=== PATIENT | female | born 1940 | race Caucasian/White ===

== ENCOUNTER 2020-03-06 10:56 | Outpatient (REF) | payer MEDICARE, SELFPAY ==
[2020-03-06 12:05] LABS: MANUAL DIFF FLAG NO
[2020-03-06 12:19] LABS: Basophils Absolute Auto 0.1 X10*3/uL (0.0-0.2); Eosinophils Absolute Auto 0.1 X10*3/uL (0.0-0.4); Eosinophils Percent Auto 1.9 % (0-4); Hematocrit 36.9 % (37-47); Hemoglobin 11.1 g/dl (12.0-16.0); Imm Gran Abs Auto 0.02 X10*3/uL (0.00-0.03); Imm Gran Pct Auto 0.4 % (0.0-0.4); Lymphocytes Absolute Auto 1.1 X10*3/uL (1.2-4.9); Lymphocytes Percent Auto 21.9 % (20-40); Mean Corpuscular HGB Conc 30.1 g/dl (31.0-35.0); Mean Corpuscular Hemoglobin 27.5 pg (27.0-33.0); Mean Corpuscular Volume 91.6 fL (80-98); Mean Platelet Volume 11.4 fL (9.4-12.3); Monocytes Absolute Auto 0.4 X10*3/uL (0.1-1.2); Neutrophils Absolute Auto 3.4 X10*3/uL (2.0-8.3); Neutrophils Percent Auto 66.8 % (45-73); Platelet Count 228 X10*3/uL (160-400); Red Blood Count 4.03 X10*6/uL (4.20-5.50); White Blood Count 5.2 X10*3/uL (4.8-10.8)
[2020-03-06 12:23] LABS: Glucose Urine UA NEG (NEG); Leukocyte Esterase Urine 1+ (NEG); Nitrite Urine NEG (NEG); PH 5.5 (5.0-8.0); Specific Gravity - Urine 1.025 (1.005-1.025); Urine Blood NEG (NEG); Urine Ketones NEG (NEG); Urine Protein NEG (NEG-TRACE)
[2020-03-06 12:31] LABS: Alanine Aminotransferase 31 U/L (0-31); Albumin Level 4.1 g/dL (3.5-5.0); Alkaline Phosphatase 124 U/L (39-117); Anion Gap 14 (12-20); Aspartate Amino Transferase 31 U/L (5-31); Bilirubin Total 0.6 mg/dL (0.0-1.0); Blood Urea Nitrogen 20 mg/dL (9-16); Calcium 9.8 mg/dL (8.4-10.2); Carbon Dioxide 23 mmol/L (22-29); Chloride 111 mmol/L (96-108); Cholesterol 173 mg/dL; Estimated Glomerular Filt Rate 54; Glucose Fasting 112 mg/dL (60-99); HDL Cholesterol 74 mg/dL; Iron 49 mcg/dL (30-160); LDL Cholesterol Calculated 85 mg/dl; Percent Iron Saturation 12 % (15-50); Potassium 4.5 mmol/l (3.3-5.1); Sodium 143 mmol/L (135-145); Total Iron Binding Capacity 406 mcg/dL (228-428); Total Protein 6.8 g/dL (6.5-8.0); Triglycerides 71 mg/dL; Unsaturated Iron Binding 357 ug/dL
[2020-03-06 12:34] LABS: Appearance Urine HAZY; Color Urine YELLOW
[2020-03-06 12:47] LABS: Bacteria Urine TRACE /LPF; RBC Urine 0 /HPF (0); Squamous Epithelial Cell Urine 3+ /LPF
[2020-03-06 13:00] LABS: Microalbum/Creatinine Ratio Ur 11.9 ug/mg cr
[2020-03-06 13:03] LABS: Estimated Average Glucose 128 mg/dL; Hemoglobin A1c % 6.1 %
== END 2020-03-06 10:57 | disposition home or self-care (01) ==
LOC: HO.LAB 10:56
PROVIDERS: PCP Internal Medicine; Visit Provider Internal Medicine
DX: E11.65 Type 2 diabetes mellitus with hyperglycemia (principal); I10 Essential (primary) hypertension; E78.00 Pure hypercholesterolemia, unspecified
CPT/HCPCS: 36415; 80053; 80061; 81001; 81003; 82043; 83036; 83540; 85025

== ENCOUNTER 2020-06-16 14:05 | Outpatient (REF) | payer MEDICARE, SELFPAY ==
[2020-06-16 16:57] LABS: Alanine Aminotransferase 10 U/L (0-31); Albumin Level 4.3 g/dL (3.5-5.0); Alkaline Phosphatase 123 U/L (39-117); Anion Gap 15 (12-20); Aspartate Amino Transferase 15 U/L (5-31); Bilirubin Total 1.1 mg/dL (0.0-1.0); Blood Urea Nitrogen 14 mg/dL (9-16); Calcium 10.6 mg/dL (8.4-10.2); Carbon Dioxide 26 mmol/L (22-29); Chloride 107 mmol/L (96-108); Estimated Glomerular Filt Rate 52; Glucose Random 98 mg/dL (60-115); Potassium 4.2 mmol/L (3.3-5.1); Sodium 144 mmol/L (135-145); Total Protein 7.1 g/dL (6.5-8.0)
[2020-06-17 03:35] LABS: Estimated Average Glucose 120 mg/dL; Hemoglobin A1c % 5.8 %
== END 2020-06-16 14:06 | disposition home or self-care (01) ==
LOC: HO.HMGCLDS 14:05
PROVIDERS: PCP Internal Medicine; Visit Provider Internal Medicine
DX: E11.22 Type 2 diabetes mellitus with diabetic chronic kidney disease (principal); I12.9 Hypertensive chronic kidney disease with stage 1 through stage 4 chronic kidney disease, or unspecified chronic kidney disease; N18.9 Chronic kidney disease, unspecified; D63.1 Anemia in chronic kidney disease
CPT/HCPCS: 36415; 80053; 83036

== ENCOUNTER 2020-10-24 11:53 | Outpatient (REF) | payer MEDICARE, SELFPAY ==
[2020-10-24 13:15] LABS: MANUAL DIFF FLAG NO
[2020-10-24 13:30] LABS: Basophils Absolute Auto 0.1 X10*3/uL (0.0-0.2); Eosinophils Absolute Auto 0.1 X10*3/uL (0.0-0.4); Eosinophils Percent Auto 1.7 % (0-4); Hematocrit 37.7 % (37-47); Hemoglobin 11.5 g/dl (12.0-16.0); Imm Gran Abs Auto 0.01 X10*3/uL (0.00-0.03); Imm Gran Pct Auto 0.2 % (0.0-0.4); Lymphocytes Absolute Auto 1.2 X10*3/uL (1.2-4.9); Lymphocytes Percent Auto 19.8 % (20-40); Mean Corpuscular HGB Conc 30.5 g/dl (31.0-35.0); Mean Corpuscular Hemoglobin 27.3 pg (27.0-33.0); Mean Corpuscular Volume 89.3 fL (80-98); Mean Platelet Volume 11.4 fL (9.4-12.3); Monocytes Absolute Auto 0.4 X10*3/uL (0.1-1.2); Monocytes Percent Auto 6.7 % (2-11); Neutrophils Absolute Auto 4.1 X10*3/uL (2.0-8.3); Neutrophils Percent Auto 70.6 % (45-73); Platelet Count 227 X10*3/uL (160-400); Red Blood Count 4.22 X10*6/uL (4.20-5.50); Red Cell Distribution Width 14.5 % (11.0-16.0); White Blood Count 5.9 X10*3/uL (4.8-10.8)
[2020-10-24 13:35] LABS: Estimated Average Glucose 123 mg/dL; Hemoglobin A1c % 5.9 %
[2020-10-24 13:36] LABS: Alanine Aminotransferase 11 U/L (0-31); Albumin Level 4.2 g/dL (3.5-5.0); Alkaline Phosphatase 112 U/L (39-117); Anion Gap 12 (12-20); Aspartate Amino Transferase 17 U/L (5-31); Bilirubin Total 0.7 mg/dL (0.0-1.0); Blood Urea Nitrogen 23 mg/dL (9-16); Calcium 10.5 mg/dL (8.4-10.2); Carbon Dioxide 27 mmol/L (22-29); Chloride 109 mmol/L (96-108); Estimated Glomerular Filt Rate 39; Glucose Random 130 mg/dL (60-115); Potassium 4.3 mmol/L (3.3-5.1); Sodium 144 mmol/L (135-145); Total Protein 6.9 g/dL (6.5-8.0)
[2020-10-27 13:12] LABS: Calcium (PTHI) 10.6 mg/dL (8.6-10.4); PTHI 70 pg/mL (14-64)
== END 2020-10-24 11:54 | disposition home or self-care (01) ==
LOC: HO.LAB 11:53
PROVIDERS: PCP Internal Medicine; Visit Provider Internal Medicine
DX: I12.9 Hypertensive chronic kidney disease with stage 1 through stage 4 chronic kidney disease, or unspecified chronic kidney disease (principal); N18.9 Chronic kidney disease, unspecified; E11.22 Type 2 diabetes mellitus with diabetic chronic kidney disease; E78.00 Pure hypercholesterolemia, unspecified
CPT/HCPCS: 36415; 80053; 83036; 83970; 85025

== ENCOUNTER 2021-03-27 10:53 | Outpatient (REF) | payer MEDICARE, SELFPAY ==
[2021-03-27 13:48] LABS: MANUAL DIFF FLAG NO
[2021-03-27 13:53] LABS: Basophils Percent Auto 0.8 % (0-2); Eosinophils Absolute Auto 0.1 X10*3/uL (0.0-0.4); Eosinophils Percent Auto 2.6 % (0-4); Hematocrit 37.8 % (37.0-47.0); Hemoglobin 11.4 g/dl (12.0-16.0); Imm Gran Abs Auto 0.01 X10*3/uL (0.00-0.03); Imm Gran Pct Auto 0.2 % (0.0-0.4); Lymphocytes Absolute Auto 1.2 X10*3/uL (1.2-4.9); Lymphocytes Percent Auto 23.7 % (20-40); Mean Corpuscular HGB Conc 30.2 g/dl (31.0-35.0); Mean Corpuscular Hemoglobin 27.3 pg (27.0-33.0); Mean Corpuscular Volume 90.4 fL (80.0-98.0); Mean Platelet Volume 11.1 fL (9.4-12.3); Monocytes Absolute Auto 0.4 X10*3/uL (0.1-1.2); Monocytes Percent Auto 6.9 % (2-11); Neutrophils Absolute Auto 3.3 x10*3/uL (2.0-8.3); Neutrophils Percent Auto 65.8 % (45-73); Platelet Count 224 X10*3/uL (160-400); Red Blood Count 4.18 X10*6/uL (4.20-5.50); Red Cell Distribution Width 14.1 % (11.0-16.0); White Blood Count 5.1 X10*3/uL (4.8-10.8)
[2021-03-27 14:04] LABS: Alanine Aminotransferase 13 U/L (0-31); Alkaline Phosphatase 113 U/L (39-117); Anion Gap 11 (12-20); Aspartate Amino Transferase 17 U/L (5-31); Bilirubin Total 0.7 mg/dL (0.0-1.0); Blood Urea Nitrogen 15 mg/dL (9-16); Calcium 10.3 mg/dL (8.4-10.2); Carbon Dioxide 26 mmol/L (22-29); Chloride 109 mmol/L (96-108); Cholesterol 171 mg/dL; Estimated Glomerular Filt Rate 41; Glucose Fasting 110 mg/dL (60-99); Potassium 4.4 mmol/L (3.3-5.1); Sodium 142 mmol/L (135-145); Total Protein 6.6 g/dL (6.5-8.0)
[2021-03-27 14:06] LABS: Estimated Average Glucose 131 mg/dL; Hemoglobin A1c % 6.2 %
[2021-03-27 14:25] LABS: Creatinine Urine 141.77 mg/dL; Microalbum/Creatinine Ratio Ur 108.6 ug/mg cr
== END 2021-03-27 10:54 | disposition home or self-care (01) ==
LOC: HO.10HDL 10:53
PROVIDERS: Visit Provider Internal Medicine
DX: I12.9 Hypertensive chronic kidney disease with stage 1 through stage 4 chronic kidney disease, or unspecified chronic kidney disease (principal); N18.9 Chronic kidney disease, unspecified; E11.22 Type 2 diabetes mellitus with diabetic chronic kidney disease; M19.90 Unspecified osteoarthritis, unspecified site
CPT/HCPCS: 36415; 80053; 82043; 82465; 83036; 85025

== ENCOUNTER 2021-09-23 10:17 | Outpatient (REF) | payer MEDICARE, SELFPAY ==
[2021-09-23 11:45] LABS: Estimated Average Glucose 131 mg/dL; Hemoglobin A1c % 6.2 %
[2021-09-23 12:24] LABS: Alanine Aminotransferase 12 U/L (0-31); Albumin Level 3.9 g/dL (3.5-5.0); Alkaline Phosphatase 109 U/L (39-117); Anion Gap 12 (12-20); Aspartate Amino Transferase 20 U/L (5-31); Bilirubin Total 0.8 mg/dL (0.0-1.0); Blood Urea Nitrogen 12 mg/dL (9-16); Carbon Dioxide 26 mmol/L (22-29); Chloride 110 mmol/L (96-108); Estimated Glomerular Filt Rate 41; Glucose Random 121 mg/dL (60-115); Potassium 4.5 mmol/L (3.3-5.1); Sodium 143 mmol/L (135-145); Total Protein 6.5 g/dL (6.5-8.0)
== END 2021-09-23 10:18 | disposition home or self-care (01) ==
LOC: HO.LAB 10:17
PROVIDERS: PCP Internal Medicine; Visit Provider Internal Medicine
DX: I12.9 Hypertensive chronic kidney disease with stage 1 through stage 4 chronic kidney disease, or unspecified chronic kidney disease (principal); N18.9 Chronic kidney disease, unspecified; E11.22 Type 2 diabetes mellitus with diabetic chronic kidney disease
CPT/HCPCS: 36415; 80053; 83036

== ENCOUNTER 2022-02-24 12:17 | Outpatient (REF) | payer MEDICARE, SELFPAY ==
[2022-02-24 12:38] LABS: MANUAL DIFF FLAG NO
[2022-02-24 14:00] LABS: Eosinophils Absolute Auto 0.1 X10*3/uL (0.0-0.4); Eosinophils Percent Auto 2.3 % (0-4); Hematocrit 37.2 % (37.0-47.0); Hemoglobin 11.3 g/dl (12.0-16.0); Imm Gran Abs Auto 0.01 X10*3/uL (0.00-0.03); Imm Gran Pct Auto 0.3 % (0.0-0.4); Lymphocytes Absolute Auto 1.1 X10*3/uL (1.2-4.9); Lymphocytes Percent Auto 27.7 % (20-40); Mean Corpuscular HGB Conc 30.4 g/dl (31.0-35.0); Mean Corpuscular Hemoglobin 27.2 pg (27.0-33.0); Mean Corpuscular Volume 89.4 fL (80.0-98.0); Mean Platelet Volume 11.2 fL (9.4-12.3); Monocytes Absolute Auto 0.3 X10*3/uL (0.1-1.2); Monocytes Percent Auto 7.4 % (2-11); Neutrophils Absolute Auto 2.4 x10*3/uL (2.0-8.3); Neutrophils Percent Auto 61.3 % (45-73); Platelet Count 227 X10*3/uL (160-400); Red Blood Count 4.16 X10*6/uL (4.20-5.50); Red Cell Distribution Width 13.7 % (11.0-16.0); White Blood Count 3.9 X10*3/uL (4.8-10.8)
[2022-02-24 14:09] LABS: Estimated Average Glucose 123 mg/dL; Hemoglobin A1c % 5.9 %
[2022-02-24 14:33] LABS: Creatinine Urine 145.65 mg/dL; Microalbum/Creatinine Ratio Ur 71.4 ug/mg cr
[2022-02-24 14:42] LABS: Alanine Aminotransferase 12 U/L (0-31); Albumin Level 4.2 g/dL (3.5-5.0); Alkaline Phosphatase 121 U/L (39-117); Anion Gap 12 (12-20); Aspartate Amino Transferase 19 U/L (5-31); Bilirubin Total 0.7 mg/dL (0.0-1.0); Blood Urea Nitrogen 15 mg/dL (9-16); Calcium 10.2 mg/dL (8.4-10.2); Carbon Dioxide 26 mmol/L (22-29); Chloride 107 mmol/L (96-108); Estimated Glomerular Filt Rate 49; Glucose Random 106 mg/dL (60-115); Potassium 4.3 mmol/L (3.3-5.1); Sodium 141 mmol/L (135-145); Total Protein 6.7 g/dL (6.5-8.0)
== END 2022-02-24 12:18 | disposition home or self-care (01) ==
LOC: HO.LAB 12:17
PROVIDERS: PCP Internal Medicine; Visit Provider Internal Medicine
DX: I12.9 Hypertensive chronic kidney disease with stage 1 through stage 4 chronic kidney disease, or unspecified chronic kidney disease (principal); E11.22 Type 2 diabetes mellitus with diabetic chronic kidney disease; N18.9 Chronic kidney disease, unspecified
CPT/HCPCS: 36415; 80053; 82043; 83036; 85025

== ENCOUNTER 2022-06-04 07:49 | Outpatient (REF) | payer MEDICARE, SELFPAY ==
[2022-06-04 08:15] LABS: MANUAL DIFF FLAG NO
[2022-06-04 08:42] LABS: Basophils Absolute Auto 0.1 X10*3/uL (0.0-0.2); Eosinophils Absolute Auto 0.1 X10*3/uL (0.0-0.4); Eosinophils Percent Auto 2.5 % (0-4); Hematocrit 35.6 % (37.0-47.0); Hemoglobin 11.2 g/dl (12.0-16.0); Imm Gran Abs Auto 0.01 X10*3/uL (0.00-0.03); Imm Gran Pct Auto 0.2 % (0.0-0.4); Lymphocytes Absolute Auto 1.4 X10*3/uL (1.2-4.9); Lymphocytes Percent Auto 26.3 % (20-40); Mean Corpuscular HGB Conc 31.5 g/dl (31.0-35.0); Mean Corpuscular Hemoglobin 27.7 pg (27.0-33.0); Mean Corpuscular Volume 88.1 fL (80.0-98.0); Mean Platelet Volume 10.5 fL (9.4-12.3); Monocytes Absolute Auto 0.5 X10*3/uL (0.1-1.2); Monocytes Percent Auto 9.6 % (2-11); Neutrophils Absolute Auto 3.2 x10*3/uL (2.0-8.3); Neutrophils Percent Auto 60.4 % (45-73); Platelet Count 195 X10*3/uL (160-400); Red Blood Count 4.04 X10*6/uL (4.20-5.50); Red Cell Distribution Width 14.1 % (11.0-16.0); White Blood Count 5.2 X10*3/uL (4.8-10.8)
[2022-06-04 08:54] LABS: Estimated Average Glucose 137 mg/dL; Hemoglobin A1c % 6.4 %
[2022-06-04 09:27] LABS: Alanine Aminotransferase 38 U/L (0-31); Albumin Level 3.9 g/dL (3.5-5.0); Alkaline Phosphatase 154 U/L (39-117); Anion Gap 12 (12-20); Aspartate Amino Transferase 26 U/L (5-31); Bilirubin Total 1.1 mg/dL (0.0-1.0); Blood Urea Nitrogen 21 mg/dL (9-16); Calcium 10.1 mg/dL (8.4-10.2); Carbon Dioxide 26 mmol/L (22-29); Chloride 109 mmol/L (96-108); Cholesterol 173 mg/dL; Estimated Glomerular Filt Rate 49; Glucose Fasting 121 mg/dL (60-99); HDL Cholesterol 74 mg/dL; LDL Cholesterol Calculated 87 mg/dl; Potassium 4.1 mmol/L (3.3-5.1); Sodium 143 mmol/L (135-145); Total Protein 6.3 g/dL (6.5-8.0); Triglycerides 60 mg/dL
[2022-06-04 10:05] LABS: Microalbum/Creatinine Ratio Ur 11.7 ug/mg cr
== END 2022-06-04 07:50 | disposition home or self-care (01) ==
LOC: HO.LAB 07:49
PROVIDERS: PCP Internal Medicine; Visit Provider Internal Medicine
DX: E78.00 Pure hypercholesterolemia, unspecified (principal); E11.22 Type 2 diabetes mellitus with diabetic chronic kidney disease; I12.9 Hypertensive chronic kidney disease with stage 1 through stage 4 chronic kidney disease, or unspecified chronic kidney disease; N18.9 Chronic kidney disease, unspecified
CPT/HCPCS: 36415; 80053; 80061; 82043; 83036; 85025

== ENCOUNTER 2023-05-24 11:06 | Outpatient (REF) | payer MEDICARE, SELFPAY ==
--- NOTE | ~2023-05-24 | XR_ITS ---
EXAMINATION: XR KNEE, LEFT CLINICAL INFORMATION: Fall, pain. COMPARISON: None available. TECHNIQUE: Two views of the left knee. FINDINGS: There is genu varus. There is severe joint space narrowing and marginal osteophytes with subchondral cystic change in the medial compartment. Lateral compartment: Chondrocalcinosis noted, marginal osteophytes with slight widening likely secondary to the narrowed medial compartment. Overall at least mild arthrosis. Patellofemoral compartment: Evaluation is limited as only lateral view obtained. Marginal osteophytes indicative of at least mild osteoarthritis. There is no effusion. There is no fracture. XR/XR knee LT 2V IMPRESSION: 1. Osteoarthritis of the left knee with degenerative changes most prominent and severe in the medial compartment. Chondrocalcinosis 2. No acute abnormality.
--- NOTE | ~2023-05-24 | XR_ITS ---
EXAMINATION: XR LUMBOSACRAL SPINE CLINICAL INFORMATION: Fall pain. COMPARISON: X-rays of lumbar sacral spine November 2013 TECHNIQUE: Three views of the lumbosacral spine. FINDINGS: There is persistent grade 1 anterolisthesis at L4-5 which appears secondary to degenerative changes with prominent bilateral facet arthrosis posteriorly unchanged compared to prior. . There is also mild grade 1 retrolisthesis at the L1-2 and L2-3 levels mild degenerative disc changes at both levels. L3-4 unremarkable. L5-S1: Grade 1 anterolisthesis secondary to degenerative changes with prominent bilateral facet arthrosis. There is no fracture or bone lesion. Partially visualized pelvis unremarkable. XR/XR lumbar spine 2-3V IMPRESSION: Multilevel spondylosis of the lumbosacral spine with degenerative listhesis. No change compared with November 2013 x-ray. No acute abnormality.
[2023-05-24 11:25] LABS: MANUAL DIFF FLAG NO
[2023-05-24 12:33] LABS: Estimated Average Glucose 114 mg/dL; Hemoglobin A1c % 5.6 % (<6.0)
[2023-05-24 12:35] LABS: Basophils Percent Auto 0.6 % (0-2); Eosinophils Absolute Auto 0.1 X10*3/uL (0.0-0.4); Eosinophils Percent Auto 1.2 % (0-4); Hematocrit 37.5 % (37.0-47.0); Hemoglobin 11.5 g/dl (12.0-16.0); Imm Gran Abs Auto 0.02 X10*3/uL (0.00-0.03); Imm Gran Pct Auto 0.4 % (0.0-0.4); Lymphocytes Percent Auto 18.9 % (20-40); Mean Corpuscular HGB Conc 30.7 g/dl (31.0-35.0); Mean Corpuscular Volume 91.2 fL (80.0-98.0); Mean Platelet Volume 10.7 fL (9.4-12.3); Monocytes Absolute Auto 0.3 X10*3/uL (0.1-1.2); Monocytes Percent Auto 6.7 % (2-11); Neutrophils Absolute Auto 3.7 x10*3/uL (2.0-8.3); Neutrophils Percent Auto 72.2 % (45-73); Platelet Count 236 X10*3/uL (160-400); Red Blood Count 4.11 X10*6/uL (4.20-5.50); Red Cell Distribution Width 15.3 % (11.0-16.0); White Blood Count 5.1 X10*3/uL (4.8-10.8)
[2023-05-24 13:12] LABS: Alanine Aminotransferase 13 U/L (0-31); Albumin Level 4.1 g/dL (3.5-5.0); Alkaline Phosphatase 151 U/L (39-117); Anion Gap 13 (12-20); Aspartate Amino Transferase 22 U/L (5-31); Bilirubin Total 0.7 mg/dL (0.0-1.0); Blood Urea Nitrogen 15 mg/dL (9-16); Calcium 10.6 mg/dL (8.4-10.2); Carbon Dioxide 28 mmol/L (22-29); Chloride 109 mmol/L (96-108); Estimated Glomerular Filt Rate > 60; Glucose Random 109 mg/dL (60-115); Potassium 3.5 mmol/L (3.3-5.1); Sodium 146 mmol/L (135-145); Total Protein 7.1 g/dL (6.5-8.0)
== END 2023-05-24 11:07 | disposition home or self-care (01) ==
LOC: HO.XRAY 11:06
PROVIDERS: PCP Internal Medicine; Visit Provider Internal Medicine
DX: M54.2 Cervicalgia (principal); M25.562 Pain in left knee; I10 Essential (primary) hypertension; D64.9 Anemia, unspecified; Z91.81 History of falling
CPT/HCPCS: 36415; 72100; 73560; 80053; 83036; 85025

== ENCOUNTER 2024-07-04 10:59 | Outpatient (AMB) | payer MEDICARE, SELFPAY ==
--- NOTE | 2024-07-04 11:05 | MHC.PC.OV ---
Vital Signs 07/04/24 11:31 Height 4 ft 11 in Weight 190 lb BMI 38.4 BP 128/80 Blood Pressure Location Rt brachial Position Sitting Pulse 71 Pulse Source Pulse Oximeter Temp 97.5 F Temp Source Axillary Pulse Oximetry (%) 98 Oxygen Delivery Method Room Air Intake Visit Reasons: Routine Customer Support Advisor Required: No Accompanied by: Self / Same As Patient Allergies penicillin G [Penicillin G] Allergy (Unknown, Verified 07/04/24 11:36) RASH Tobacco use date assessed: 07/04/24 Fall risk assessment: 1 Fall in past year (pt fall on the bathroom floor) Last assessed Fall Risk: 07/04/24 Dental Screening Dental Screen Date: 07/04/24 Did you have a dental visit in the last 12 months?: No Did you have a dental problem in the last 6 months where you did not have access to dental care?: No [facility] Medical History (Updated 07/04/24 @ 13:25 by Hong Pierre MD) Osteoarthritis Family History (Updated 07/04/24 @ 11:40 by Domi Newman MA) Mother No problems noted. Father No problems noted. Social History Housing: House Patient Tobacco Use Status: Never used Tobacco e-Cigarette/Vaping Use: Never Used service: No Current occupational status: retired Cognitive needs: No Hearing needs: Yes (both hear aids. she doesn't have a rx for them and she borrowed them) Vision needs: Yes (rx glasses) Questionnaire PHQ-9 Over the last 2 weeks, how often have you been bothered by any of the following problems? 1. Little interest or pleasure in doing things: not at all 2. Feeling down, depressed, or hopeless: not at all 3. Trouble falling or staying asleep, or sleeping too much: not at all 4. Feeling tired or having little energy: not at all 5. Poor appetite or overeating: not at all 6. Feeling bad about yourself - or that you are a failure or have let yourself or your family down: not at all 7. Trouble concentrating on things, such as reading the newspaper or watching television: not at all 8. Moving or speaking so slowly that other people could have noticed. Or the opposite - being so fidgety or restless that you have been moving around a lot more than usual: not at all 9. Thoughts that you would be better off or of hurting yourself in some way: not at all Total score: 0 Source: Developed by Drs. Santiago Burkett, Ted Morse and colleagues, with an educational anisha from [employer]. Thrive Questionnaire Date Thrive assessed: 07/04/24 I am a: Patient Within the past 12 months, did the food you bought not last and you didn't have the money to get more?: Never true Within the past 12 months, did you worry whether your food would run out before you got money to buy more?: Never true Do you have trouble paying for medicines?: No Do you have trouble getting transportation to medical appointments?: No Do you have trouble paying your heating and electricity bill?: No Do you have trouble taking care of your child, family member or friend?: No Do you have trouble with day-to-day activities such as bathing, preparing meals, shopping, managing finances, etc.?: No Are you currently unemployed and looking for a job?: No Are you interested in more education?: No THRIVE Score: 0 AUDIT C Alcohol Use Questionnaire (AUDIT-C) 1. How often do you have a drink containing alcohol?: Never 3. How often do you have six or more drinks on one occasion?: Never Total Score: 0 DAMIAN-7 AMB Questionnaire DAMIAN-7 Date DAMIAN - 7 assessed: 07/04/24 Feeling nervous, anxious, or on edge: 0 = Not at all Not being able to stop or control worryin = Not at all Worrying too much about different things: 0 = Not at all Trouble relaxin = Not at all Being so restless that it is hard to sit still: 0 = Not at all Becoming easily annoyed or irritable: 0 = Not at all Feeling afraid as if something awful might happen: 0 = Not at all Total DAMIAN-7 score (0-4 normal; 5-9 mild; 10-14 moderate; 15-21 severe): 0 Source: Developed by Drs. Santiago Burkett, Ted Morse and colleagues, with an educational anisha from [employer]. Physical exam (Primary Care) Vital Signs: Last Vital Signs Temp 97.5 F 07/04/24 11:31 Pulse 71 07/04/24 11:31 BP 128/80 07/04/24 11:31 Pulse Ox 98 07/04/24 11:31 Oxygen Delivery Method Room Air 07/04/24 11:31 BMI result Body Mass Index 38.4 Tobacco/Smoking Status: Tobacco use Status Tobacco use date assessed 07/04/24 07/04/24 11:07 Patient Tobacco Use Status Never used Tobacco 07/04/24 11:07 e-Cigarette/Vaping Use Never Used 07/04/24 11:07 PHQ-9: PHQ-9 Score PHQ-9: Total score 0 07/04/24 11:44 Thrive Assessment: Date of Thrive Assessment Date Thrive assessed 07/04/24 07/04/24 11:07 Coding Level of Care Code New Pt Level 4 (88211) Complex EM visit Add On G2211 Diagnoses Osteoarthritis M19.90 Assessment & Plan Assessment & Plan (1) Osteoarthritis: Code(s): M19.90 - Unspecified osteoarthritis, unspecified site Category: Medical Plan: History of Present Illness The patient is an 84-year-old female presenting with difficulty swallowing and bilateral knee pain. She described an onset of symptoms involving a sensation of obstruction in the upper palate accompanied by a sore throat, noted as white in appearance. This progressively resulted in difficulty swallowing, though with some slight improvement noted over time. She has a significant fall history, resulting in an arm fracture now managed with physical therapy, but knee pain persists despite multiple interventions. Previous cortisone injections and use of hyaluronic acid have been reported but not notably effective. Her knee condition leads to restricted mobility, and she is reliant on a wheelchair. Leg swelling is present, suspected to be circulation-related due to immobility. The patient's inability to ambulate effectively increases her risk of further circulation issues. She has resumed furosemide treatment due to leg edema, with guidance to adjust the dosage as clinically appropriate. Social History - Functional status: Limited mobility, reliant on wheelchair, minimal use of a walker - Family: Daughter involved in care, brought patient to visit - Exercise: No formal exercise, but engages in activities related to physical therapy - Family Status: Discussed with daughter involved in appointments - Prior PT completed; no current plan for continuation Review of Systems - HEENT: Reports difficulty swallowing - Respiratory: Reports shortness of breath - Musculoskeletal: Reports knee pain, joint swelling, and limited mobility - Skin: Reports swelling in the leg area - General: Denies current active infections or fever Physical Exam General: Cooperative and healthy appearing Nutritional Appearance: Well nourished Orientation/consciousness: Patient oriented x3 Limitations: No limitations Head: Normal to inspection General: Appearance normal, both eyes and all related structures Neck: Normal visual inspection Chest: Normal palpation of entire chest wall Respiratory: Patient experiences shortness of breath. ormal respiratory effort Neurology: Patient oriented x3. Results Plan 1. Difficulty Swallowing - Monitor symptoms and reassess as necessary. 2. Knee Osteoarthritis - Decision made to forego knee replacement; consider cortisone injections if applicable. 3. Fractured Upper Arm - Continue at-home exercises post-PT. 4. Swelling In Legs - Adjust furosemide dosage to 40 mg for edema. 5. Mobility Issues Related To Previous Fall - Encourage walker use; reassess mobility status. Discussion Notes We discussed the patient?s ongoing difficulty swallowing and confirmed that the white appearance in the throat is improving and not requiring intervention. Regarding her bilateral knee pain, the patient remains hesitant about knee replacement, so we reviewed alternative options, including potential repeat cortisone injections if warranted. I recommend increased mobility to manage her leg swelling and prevent complications associated with sedentary lifestyle. We also discussed the adjustment of furosemide to 40 mg for better management of the swelling. I suggested resuming physical therapy; however, the patient declined further sessions. Planned for reassessment in two weeks to consider any necessary alterations to her management plan. Patient Instructions - Monitor your throat symptoms and report if they worsen. - Increase furosemide dose to 40 mg if swelling in the legs does not improve. - Continue exercises and activities recommended by PT. - Consider cortisone injection for knee pain if more than six months have passed since the last one. - Keep using a walker for support. - Follow up in two weeks as scheduled.
[2024-07-04 11:31] VITALS: BP 128/80; PULSE 71; TEMP 36.4; O2SAT 98; BMI 38.4
--- OUTSIDE RECORDS SUMMARY | 2024-07-04 12:25 | XMS_ITS | Patient Health Record ---
Author Organization [facility] Address [address] [place] [address] Care Team Providers Care Staff Radiographer Name Role Phone Marco Santiago MD Primary Care Provider Courtneya Khoa Dove Unavailable [phone] Volodymyr Ennis Unavailable [phone] Allergies Allergen (clinical drug ingredient) Drug/Non Drug Allergy documented on EMR Reaction Allergy Type Onset Date Status ivory soap (uncoded) Unknown Allergy Active amoxicillin Amoxicillin hives, vomiting Drug Allergy Active sulfamethoxazole / trimethoprim Bactrim Unknown Drug Allergy Active Adhesive rash Allergy Active choline magnesium trisalicylate Choline Magnesium Trisalicylate Hearing loss Drug Allergy Active Penicillin hives, vomiting Drug Allergy Active Reason For Referral No Information Medications Medication SIG (Take, Route, Frequency, Duration) Notes Start Date End Date Status Tylenol Arthritis Pain Not-Taking Compression Stockings Not-Taking Crestor Active Vitamin B 12 Not-Narciso ing Aspirin 81 MG 1 tablet Orally Once a day for 30 day(s) Active Vitamin C Not-Taking Motrin Not-Taking Lasix 20 MG 1 tablet Orally Once a day for 30 day(s) Not-Taking Hair Skin Nails Not- Taking Vitamin B Complex No t-Taking Magnesium 250 MG 1 tablet with a meal Orally Once a day for 30 day(s) Active Protonix Not-Taking metFORMIN HCl 500 MG as directed Active Iron Not-Taking Lisinopril 10 MG 1 tablet Orally Once a day for 30 day(s) Active Zinc Not-Taking Vitamin B12 3000 MCG/ML Sublingual Not-Taking Inhaler Companions N ot-Taking Diabetic Insoles Not -Taking Vitamin D Not-Taking Immunizations Vaccine Route Administration Date Status Comme nts COVID-19 Anthony & Anthony/Tracey Unknown 11/16/2021 R efused Influenza Unknown 04/15/2016 Refused Influenza Unknown 07/06/2018 Refused Social History Tobacco Use: Social History Observation Description Date Details (start date - stop date) Never Smoker NA - NA Tobacco use other than smoking: Question Answer Notes Are you an other tobacco user? No Tobacco Control (Standard) Question Answer Notes Tobacco use: Nonsmoker AUDIT-C (Standard) Question Answer Notes Did you have a drink containing alcohol in the p ast year? No Points 0 Interpretation Negative Problems Problem Type SNOMED Code ICD Code Onset Dates Problem Status W/U Status Risk Notes Problem Acquired hammer toe of right foot (6288429788576 105) Other hammer toe(s) (acquired), right foot (M20.41) Active confirmed Problem Type 2 diabetes mellitus with peripheral angiopathy (151478742) Type 2 diabetes mellitus with diabetic peripheral angiopathy without gangrene (E11.51) Active confirmed Q7(A), Q8(2B), Q9(1B,2C) Problem Acquired hammer toe of left foot (2364053746645 103) Other hammer toe(s) (acquired), left foot (M20.42) Active confirmed Vital Signs Blood pressure diastolic 60 mm Hg 06/12/2024 Height 4 ft 11 in in 06/12/2024 Blood pressure systolic 120 mm Hg 06/12/2024 Weight 195 lbs 06/12/2024 BMI 39.38 kg/m2 06/12/2024 Procedures Procedure Date Ordered Date Performed Result Body Sit e 59112-OWNMDGF NAIL, 6 OR MORE 03/06/2024 N/A 05860-JOQW SKIN LESIONS, 2 TO 4 03/06/2024 N/A 80023-GVCRLPF NAIL, 6 OR MORE 06/12/2024 N/A 58153-PTIV SKIN LESIONS, 2 TO 4 06/12/2024 N/A Encounters Encounter Location Date Provider Diagnosis [address] [address] 11/28/2023 Volodymyr Ennis Tinea unguium B35.1 ; Pain in right toe(s) M79.674 ; Pain in left toe(s) M79.675 ; Type 2 diabetes mellitus with diabetic polyneuropathy E11.42 and Primary osteoarthritis, left ankle and foot M19.[address] [address] 03/06/2024 Khoa Maximilian Tinea unguium B35.1 ; Type 2 diabetes mellitus with diabetic peripheral angiopathy without gangrene E11.51 ; Pain in right toe(s) M79.674 ; Pain in left toe(s) M79.675 ; Other hammer toe(s) (acquired), right foot M20.41 and Other hammer toe(s) (acquired), left foot M20.[address] [address] 06/12/2024 Khoa Castrounier Tinea unguium B35.1 ; Type 2 diabetes mellitus with diabetic peripheral angiopathy without gangrene E11.51 ; Pain in right toe(s) M79.674 and Pain in left toe(s) M79.675 Assessments Encounter Date Diagnosis (ICD Code) Assessment Notes Treatment Notes Treatment Clinical Notes Section Notes 11/28/2023 Tinea unguium (ICD-10 - B35.1) 03/06/2024 Type 2 diabetes mellitus with diabetic peripheral angiopathy without gangrene (ICD-10 - E11.51) Q7(A), Q8(2B), Q9(1B,2C) 03/06/2024 Tinea unguium (ICD-10 - B35.1) 06/12/2024 Type 2 diabetes mellitus with diabetic peripheral angiopathy without gangrene (ICD-10 - E11.51) Q7(A), Q8(2B), Q9(1B,2C) 06/12/2024 Tinea unguium (ICD-10 - B35.1) 06/12/2024 Pain in right toe(s) (ICD-10 - M79.674) 03/06/2024 Pain in right toe(s) (ICD-10 - M79.674) 11/28/2023 Pain in right toe(s) (ICD-10 - M79.674) 11/28/2023 Pain in left toe(s) (ICD-10 - M79.675) 03/06/2024 Pain in left toe(s) (ICD-10 - M79.675) 06/12/2024 Pain in left toe(s) (ICD-10 - M79.675) 11/28/2023 Type 2 diabetes mellitus with diabetic polyneuropathy (ICD-10 - E11.42) 03/06/2024 Other hammer toe(s) (acquired), right foot (ICD-10 - M20.41) 03/06/2024 Other hammer toe(s) (acquired), left foot (ICD-10 - M20.42) 11/28/2023 Primary osteoarthritis, left ankle and foot (ICD-10 - M19.072) Plan Of Treatment Pending Test Test Name Order Date 46719-JDIWYWB NAIL, 6 OR MORE 01/27/2011 09629-ZOKDTVK NAIL, 6 OR MORE 05/26/2011 85983-BMNMOVF NAIL, 6 OR MORE 08/26/2011 73756-XRNVYZB NAIL, 6 OR MORE 12/09/2011 89541-LACWTSI NAIL, 6 OR MORE 04/12/2012 50803-MACKQHT NAIL, 6 OR MORE 07/10/2012 31249-PJWFEEU NAIL, 6 OR MORE 10/23/2012 71195-SKSLFNL NAIL, 6 OR MORE 01/22/2013 76000-BGTNNRH NAIL, 6 OR MORE 04/26/2013 43240-TDYEHXI NAIL, 6 OR MORE 07/12/2013 70725-NRUSZQX NAIL, 6 OR MORE 10/10/2013 75028-NCMZKME NAIL, 6 OR MORE 01/09/2014 05307-WHHRDQM NAIL, 6 OR MORE 04/11/2014 87234-EWAMWZS NAIL, 6 OR MORE 07/10/2014 77502-GEMFDAV NAIL, 6 OR MORE 10/09/2014 97468-BLUPDCN NAIL, 6 OR MORE 12/25/2014 30887-XBWSCNW NAIL, 6 OR MORE 03/19/2015 59979-SBGJNSP NAIL, 6 OR MORE 07/09/2015 62929-CCVTELQ NAIL, 6 OR MORE 10/15/2015 18339-BVUDVOD NAIL, 6 OR MORE 04/15/2016 39154-LZVEKIH NAIL, 6 OR MORE 01/15/2016 42576-POXXSMW NAIL, 6 OR MORE 09/29/2016 38401-HISLLBC NAIL, 6 OR MORE 01/03/2017 25991-QFEYFAN NAIL, 6 OR MORE 04/04/2017 33901-MJAKOFV NAIL, 6 OR MORE 07/04/2017 59109-YTOQHAM NAIL, 6 OR MORE 10/05/2017 56015-LHSEWKU NAIL, 6 OR MORE 01/05/2018 49159-AWNZGIK NAIL, 6 OR MORE 03/06/2024 20591-VNJKATW NAIL, 6 OR MORE 06/12/2024 42497-Sepl Destruction, 1-14 04/04/2017 77429-Knawnyyi Plate 12/25/2014 03513-TPQT SKIN LESIONS, OVER 4 03/19/19 16 98371-KXEP SKIN LESIONS, OVER 4 10/15/19 16 23245-IRVD SKIN LESIONS, OVER 4 07/09/19 16 96974-GMTR SKIN LESIONS, OVER 4 01/04/20 17 45617-KFXC SKIN LESIONS, OVER 4 01/15/20 16 05977-YFFY SKIN LESIONS, OVER 4 04/15/19 17 30132-LKHK SKIN LESIONS, OVER 4 07/01/19 17 48944-MGHG SKIN LESIONS, OVER 4 09/30/19 17 75670-RSVR SKIN LESIONS, OVER 4 07/05/19 18 90529-MULL SKIN LESIONS, OVER 4 01/06/20 18 91882-SQYP SKIN LESIONS, OVER 4 10/06/19 19 97430-TMCV SKIN LESIONS, OVER 4 01/11/20 19 76481-PUEB SKIN LESIONS, OVER 4 04/25/19 20 40673-CYRP SKIN LESIONS, OVER 4 07/25/19 20 36510-CMIT SKIN LESIONS, OVER 4 10/25/19 20 11044-XTLO SKIN LESIONS, OVER 4 03/12/19 21 30178-ZRNV SKIN LESIONS, OVER 4 06/17/19 21 76667-BRWL SKIN LESIONS, OVER 4 09/16/19 21 42551-OHVC SKIN LESIONS, OVER 4 12/19/19 21 39533-QJRW SKIN LESIONS, OVER 4 10/10/19 15 71299-STKB SKIN LESIONS, OVER 4 07/11/19 15 68905-DLJJ SKIN LESIONS, OVER 4 04/11/19 15 85028-JJEA SKIN LESIONS, OVER 4 01/10/20 14 38293-RYVW SKIN LESIONS, OVER 4 10/11/19 14 92670-JDZB SKIN LESIONS, OVER 4 07/13/19 14 83887-VWGI SKIN LESIONS, OVER 4 04/26/19 14 41493-YNXH SKIN LESIONS, OVER 4 01/23/20 13 70786-QNKP SKIN LESIONS, OVER 4 10/24/19 13 94865-XFGG SKIN LESIONS, OVER 4 07/11/19 13 77352-BCGV SKIN LESIONS, OVER 4 04/12/19 13 13659-QDZU SKIN LESIONS, OVER 4 12/09/19 12 31690-TSHV SKIN LESIONS, OVER 4 08/26/19 12 70410-CLPZ SKIN LESIONS, OVER 4 05/26/19 12 18598-CUUK SKIN LESIONS, OVER 4 01/28/20 11 00234-BIGJ SKIN LESIONS, OVER 4 04/06/19 19 58897-EQTN SKIN LESIONS, 2 TO 4 07/07/19 57822-ENJN SKIN LESIONS, 2 TO 4 03/06/19 93393-EOQB SKIN LESIONS, 2 TO 4 06/13/19 94056-QZJQ SKIN LESIONS, 2 TO 4 03/26/19 22 78954-YAPD SKIN LESIONS, 2 TO 4 11/17/19 22 86337-KQPL SKIN LESIONS, 2 TO 4 10/06/19 18 48312-MSAB SKIN LESIONS, 2 TO 4 04/04/19 18 86796-OVTE SKIN LESIONS, 2 TO 4 12/26/19 15 43623, J0702- Neuroma/Injection 12/09/19 12 Next Appt Details Provider Name:Khoa Yao , 10/09/2024 01:00:00 PM, [address] [place], [address], Insurance Providers Payer Name Payer Address Payer Phone Subscriber Number Group Number Insured Name Patient Relationship to Insured Coverage Start Date Coverage End Date Medicare National Govt [facility] [address] [facility] [place] [address] [id number] Darlene Samuel Self - patient is the insured 8 [employer] [address] [place] [address] [phone] [id number] Darlene Samuel Self - patient is the insured Medical (General) History Medical History History ICD Code reflux mumps measles chicken pox chronic sinusitis headaches/migraines broken bones back, hip, knee pain asthma type II diabetes covid-19 broken arm Hypertension Hypercholesterolemia Surgical History Surgery Date(Month/Year)
--- OUTSIDE RECORDS SUMMARY | 2024-07-04 12:25 | XMS_ITS ---
Author Organization [facility] Address [address] [place] [address] Care Team Providers Care Commercial Loan Analyst Name Role Phone Marco Santiago MD Primary Care Provider Khoa Díaz Unavailable [phone] Volodymyr Ennis Unavailable [phone] Allergies Allergen (clinical drug ingredient) Drug/Non Drug Allergy documented on EMR Reaction Allergy Type Onset Date Status ivory soap (uncoded) Unknown Allergy Active amoxicillin Amoxicillin hives, vomiting Drug Allergy Active sulfamethoxazole / trimethoprim Bactrim Unknown Drug Allergy Active Adhesive rash Allergy Active choline magnesium trisalicylate Choline Magnesium Trisalicylate Hearing loss Drug Allergy Active Penicillin hives, vomiting Drug Allergy Active REASON FOR VISIT pcp-04/2023, Painful nail(s) aggrevated by shoes and causing difficulty standing/walking. Medications Medication SIG (Take, Route, Frequency, Duration) Notes Start Date End Date Status Vitamin B Complex No t-Taking Protonix Not-Taking Inhaler Companions N ot-Taking Vitamin D Not-Taking Vitamin B12 3000 MCG/ML Sublingual Not-Taking Motrin Not-Taking Vitamin B 12 Not-Narciso ing Vitamin C Not-Taking Iron Not-Taking Zinc Not-Taking Lasix 20 MG 1 tablet Orally Once a day for 30 day(s) Not-Taking Hair Skin Nails Not- Taking Compression Stockings Not-Taking Diabetic Insoles Not -Taking Tylenol Arthritis Pain Not-Taking Crestor Active Aspirin 81 MG 1 tablet Orally Once a day for 30 day(s) Active metFORMIN HCl 500 MG as directed Active Lisinopril 10 MG 1 tablet Orally Once a day for 30 day(s) Active Magnesium 250 MG 1 tablet with a meal Orally Once a day for 30 day(s) Active Social History Tobacco Use: Social History Observation Description Date Details (start date - stop date) Never Smoker NA - NA Tobacco Use/Smoking Question Answer Notes Are you a: nonsmoker Additional Findings: Tobacco Non-User Current no n-smoker Alcohol Screen Question Answer Notes Did you have a drink containing alcohol in the p ast year? No Points 0 Interpretation Negative Tobacco use other than smoking: Question Answer Notes Are you an other tobacco user? No Vital Signs Height 4 ft 11 in in 11/28/2023 Weight 195 lbs 11/28/2023 BMI 39.38 kg/m2 11/28/2023 Encounters Encounter Location Date Provider Diagnosis [facility] [address] [address] 11/28/2023 Volodymyr Ennis Tinea unguium B35.1 ; Pain in right toe(s) M79.674 ; Pain in left toe(s) M79.675 ; Type 2 diabetes mellitus with diabetic polyneuropathy E11.42 and Primary osteoarthritis, left ankle and foot M19.072 Assessments Encounter Date Diagnosis (ICD Code) Assessment Notes Treatment Notes Treatment Clinical Notes Section Notes 11/28/2023 Tinea unguium (ICD-10 - B35.1) 11/28/2023 Pain in right toe(s) (ICD-10 - M79.674) 11/28/2023 Pain in left toe(s) (ICD-10 - M79.675) 11/28/2023 Type 2 diabetes mellitus with diabetic polyneuropathy (ICD-10 - E11.42) 11/28/2023 Primary osteoarthritis, left ankle and foot (ICD-10 - M19.072) Plan Of Treatment Next Appt Details Follow Up: 3 Months, Reason: Provider Name:Khoa Yao , 10/09/2024 01:00:00 PM, [address] [place] [address], [phone], Procedure Notes * Category Sub-Category Detail Notes Debride Nail 6-10 Nail debridement Nail debridem ent performed extensively to reduce/remove overall nail length and girth, subungual debris, and necrotic tissue, by manual and electrical means with use of a nail nipper and/or dremel, to more viable healthy nail plate or bed tissue 6-10. Silver nitrate used for any petechial bleeding as necessary. Patient chooses, no pharmaceutical tx (33445) Keratoma Treatment Parring or Cutting o f Benign Hyperkeratotic Lesion(s) 58027 (2-4 Lesions) - The Benign hyperkeratotic lesions, as described above were pared, and/or cut utilizing a sterile #15 blade, tissue nippers, and/or dremel Progress Notes * Darlene SAMUEL RDOB:1940 (84 yo F)Acc No.[id number]:11/28/2023 Progress Note Patient:?Darlene SAMUEL Provider:?Volodymyr Ennis DPM :1940???Age:83 Y???Sex:Female D ate:11/28/2023 Address:[address] [place], [place] [id number] Pcp:Marco Santiago MD Subjective: * Chief Complaints: * ???Pcp-04/2023 Painful nail( s) aggrevated by shoes and causing difficulty standing/walking. * HPI: ???Painful Nails:?Pt States Last PCP Visit:?Date:?05/28/2023 * ROS:?General/Constitutional:?Nausea?denies, denies.?Vomiting?denies, denies.?Hunger Thirst?denies, denies.?Loss appetite?denies, denies.?Chills?denies, denies.?Fatigue?denies, denies.?Fever?denies, denies.?Night Sweats denies, denies.?Unexplained weight loss?denies, denies.?Unexplained weight gain?denies, denies.?HEENTM:?Dentures?denies, denies.?Dizziness?denies, denies.?Glasses/contacts?admits, admits.?Retinopathy?denies, denies.?Blurred/double vision?denies, denies.?TMJ?denies, denies.?Discharge/drainage?denies, denies.?Implants?denies, denies.?Sore throat?denies, denies.?Dental implants?denies, denies.?Hard of hearing ?denies, denies.?Difficulty chewing/swallowing/speaking?denies, denies.?Nose bleeds?denies, denies.?Sore mouth?denies, denies.?Respiratory:?On Oxygen?denies, denies.?Pneumonia/pleurisy?denies, denies.?Bronchitis?denies, denies.?Emphysema?denies, denies.?Coughing?denies, denies.?Cough blood?denies, denies.?Shortness of breath?denies, denies.?Wheezing?denies, denies.?Cardiovascular:?Pacemaker?denies, denies.?MVP?denies, denies.?WPW?denies, denies.?CHF?denies, denies.?Heart attack?denies, denies.?Septal defect?denies, denies.?Rapid beat?denies, denies.?Chest pain ?denies, denies.?Atrial Fib.?denies, denies.?Murmur/Palpitations?denies, denies.?Gastrointestinal:?Hemorrhoids?denies, denies.?Stomach/Abdominal pain?denies, denies.?Dark blood stool?denies, denies.?Irritable bowel ?denies, denies.?Constipation?denies, denies.?Diarrhea?denies, denies.?Hematology:?Swelling?denies, denies.?Clots?denies, denies.?Varicose Veins?denies, denies.?Bruising?denies, denies.?Bleeding problem?denies, denies.?Genitourinary:?Blood urine?denies, denies.?Frequent/Painfu/urination/bladder control?denies, denies.?Kidney stones?denies, denies.?Infection (UTI)?denies, denies.?Nephropathy?denies, denies.?sex trans dis (STD)?denies, denies.?Prostate?denies, denies.?Musculoskeletal:?Hammertoes?denies, denies.?Bunions?denies, denies.?Back Pain?denies, denies.?Muscle Cramps/ Resting?denies, denies.?Muscle cramps / walking?denies, denies.?Generalized aches and pains?denies, denies.?Weakness?denies, denies.?Integ.:?Senior?denies, denies.?Scars?denies, denies.?Corns/calluses?denies, denies.?Ingrown nails?admits, denies.?Painful nails?admits, denies.?Open Sores?denies, denies.?Rashes?denies, denies.?Neurologic:?Difficulty sleeping?denies, denies.?Brain disorder?denies, denies.?Numbness?denies, denies.?Balance trouble?denies, denies.?Confusion?denies, denies.?Fainting/blackouts?denies, denies.?Tingling?denies, denies.?Tremors?denies, denies.? * Medical History:? * Surgical History:?Denies Pas t Surgical History * Hospitalization/Major Diagno stic Procedure:?Denies Past Hospitalization * Family History:?Mother: dece ased, diagnosed with Diabetic - NIDDM, Other malignant neoplasm of unspecified site.?Father: , diagnosed with Diabetic - NIDDM.?Spouse: .? * Social History:?Tobacco Use:?Tobacco Use/Smoking?Are you a:?nonsmoker ?Additional Findings: Tobacco Non-User?Current non-smoker ?Tobacco use other than smoking?Are you an other tobacco user??No ???Drugs/Alcohol:?Drugs?Have you used drugs other than those for medical reasons in the past 12 months??No ?Alcohol Screen?Did you have a drink containing alcohol in the past year??No ?Points?0 ?Interpretation?Negative ???Miscellaneous:?Caffeine: yes, frequency: pepsi. ?Children: yes, 4. ?Exercise: no. ?Marital status: . ?Occupation: Retired-[employer] * Medications:?TakingAspirin 8 1 MG Tablet Chewable 1 tablet Orally Once a day Crestor Lisinopril 10 MG Tablet 1 tablet Orally Once a day metFORMIN HCl 500 MG Tablet as directed Magnesium 250 MG Tablet 1 tablet with a meal Orally Once a day Taking Aspirin 81 MG Tablet Chewable 1 tablet Orally Once a day Taking Crestor Taking Lisinopril 10 MG Tablet 1 tablet Orally Once a day Taking metFORMIN HCl 500 MG Tablet as directed Taking Magnesium 250 MG Tablet 1 tablet with a meal Orally Once a day Not-Taking/PRNHair Skin Nails Diabetic Insoles Compression Stockings Tylenol Arthritis Pain Lasix 20 MG Tablet 1 tablet Orally Once a day Motrin Vitamin C Vitamin B 12 Zinc Iron Protonix Vitamin B Complex Vitamin D Inhaler Companions Vitamin B12 3000 MCG/ML Liquid Sublingual Medication List reviewed and reconciled with the patientNot-Taking/PRN Hair Skin Nails Not-Taking/PRN Diabetic Insoles Not- Taking/PRN Compression Stockings Not-Taking/PRN Tylenol Arthritis Pain Not-Taking/PRN Lasix 20 MG Tablet 1 tablet Orally Once a day Not-Taking/PRN Motrin Not-Taking/PRN Vitamin C Not-Taking/PRN Vitamin B 12 Not-Taking/PRN Zinc Not-Taking/PRN Iron Not- Taking/PRN Protonix Not-Taking/PRN Vitamin B Complex Not-Taking/PRN Vitamin D Not- Taking/PRN Inhaler Companions Not-Taking/PRN Vitamin B12 3000 MCG/ML Liquid Sublingual Medication List reviewed and reconciled with the patient * Allergies:?Amoxicillin: hive s, vomitingBactrimivory soapCholine Magnesium Trisalicylate: Hearing lossAdhesive: rashPenicillin: hives, vomitingyes[Allergies Verified] Objective: * Vitals:?Ht: 4 ft 11 in, Wt: 195, BMI: 39.38, Shoe size: 8, BS: 107, Wt-k.45 kg. * ???Past Orders: ???Lab:HEMOGLOBIN A1C (GLYCO HEMOGLOBIN) (Order Date - 04/29/2023) (Collection Date & Time - 04/29/2023 12:18 PM) ? Value Reference Range ?TOTAL HEMOGLOBIN (HGBA1C) 6.8 * Examination: ???Ophthalmology Referral: ?DIABETES EYE EXAM?Diabetic Retinopathy Screening:?Yes 2022 ?Findings of Diabetic Eye Exam:?no retinopathy?Neurological: ?SENSORY:?exam demonstrates. reduced vibration lower extremity raj ff, exam demonstrates sharp pop dorsal left 2nd mt-cun.?Vascular: ?DP PULSES (B):?03/03, B/L.?PT PULSES (B):?03/03, B/L.?EDEMA (C):?03/03, B/L, Feet, Ankle(s), Leg(s).?Nails: ?NAILS are:?elongated,overgrown,dystrophic,greater than 3mm thick,discolored and friable with crumbly malodorous subungual debris, with dull pain on palpation due to neuropathy, 1-5 B/L.?Dermatologic: ?SKIN FINDINGS:? Skin exam reveals Keratotic lesion(s) located at, Plantar, Heel(s), B/L .?Orthopedic: ?MUSCLE STRENGTH:?5/5 all groups in a symmetrical fashion , B/L.?FOOT MORPHOLOGY:? Pes Planus structure.?BUNION:? Dorsally prominent 1st MPJ , (+) Pain on palpation, B/L, Lateral tracking 1st MPJ incompletely reducable, Limited 1st MPJ Dorsal ROM, Limited 1st MPJ Plantar ROM; hyperextension raj hallux ipj.?FOOTWEAR:? good condition.?General Examination: ?FOOT EXAM:?Lower Extremity Neurological Exam performed:?Yes ?Date?11/28/2023??? Assessment: * Assessment: 1.?Tinea unguium - B35.1 (Pr imary)???2.?Pain in right toe(s) - M79.674???3.?Pain in left toe(s) - M79.675???4.?Type 2 diabetes mellitus with diabetic polyneuropathy - E11.42???5.?Primary osteoarthritis, left ankle and foot - M19.072??? Plan: * Treatment: * Procedures:?Debride Nail 6-10:?Nail debridement?Nail debridement performed extensively to reduce/remove overall nail length and girth, subungual debris, and necrotic tissue, by manual and electrical means with use of a nail nipper and/or dremel, to more viable healthy nail plate or bed tissue 6-10. Silver nitrate used for any petechial bleeding as necessary. Patient chooses, no pharmaceutical tx ([id number]).?Keratoma Treatment:?Parring or Cutting of Benign Hyperkeratotic Lesion(s)?34768 (2-4 Lesions) - The Benign hyperkeratotic lesions, as described above were pared, and/or cut utilizing a sterile #15 blade, tissue nippers, and/or dremel.? * Procedure Codes:?68952 DEBRI DE NAIL, 6 OR MORE, Modifiers: XS 37738 TRIM SKIN LESIONS, 2 TO 4, Modifiers: XS * Follow Up:?3 Months * Images: * Sign off status: Completed true * Provider:?Volodymyr Ennis DPM Date:? 024 Generated for Benito pearson/Mahesh/eTransmitting on:?07/04/2024 12:24 PM EDT History and Physical Notes * HPI (History of Present Illness) Category Sub-Category Detail Notes Category Not es Painful Nails Pt States Last PCP Visit: Date:: 05/28/2023 Examination Category Sub-Category Detail Notes Category Not es Neurological SENSORY: exam demonstrate s. reduced vibration lower extremity raj ff, exam demonstrates sharp pop dorsal left 2nd mt-cun Dermatologic SKIN FINDINGS: Skin exam reveal s Keratotic lesion(s) located at, Plantar, Heel(s), B/L Orthopedic FOOT MORPHOLOGY: Pes Planus structure BUNION: Dorsally prominent 1 st MPJ , (+) Pain on palpation, B/L, Lateral tracking 1st MPJ incompletely reducable, Limited 1st MPJ Dorsal ROM, Limited 1st MPJ Plantar ROM; hyperextension raj hallux ipj FOOTWEAR EVALUATION: good condition MUSCLE STRENGTH: 5/5 all groups in a symmetrical fashion , B/L General Examination FOOT EXAM: Lower Extrem ity Neurological Exam performed:: Yes Date: 11/28/2023 Ophthalmology Referral DIABETES EYE EXAM Diabetic Reti nopathy Screening:: Yes 2022 Findings of Diabetic Eye Exam:: no retin opathy Vascular DP PULSES (B): 1/4, B/L PT PULSES (B): 1/4, B/L EDEMA (C): 1/4, B/L, Feet, Ankl e(s), Leg(s) Nails NAILS are: elongated,overgr own,dystrophic,greater than 3mm thick,discolored and friable with crumbly malodorous subungual debris, with dull pain on palpation due to neuropathy, 1-5 B/L
--- OUTSIDE RECORDS SUMMARY | 2024-07-04 12:25 | XMS_ITS ---
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 Role Phone Marco Santiago MD Primary Care Provider Khoa Díaz Unavailable [phone] Allergies Allergen (clinical drug ingredient) Drug/Non Drug Allergy documented on EMR Reaction Allergy Type Onset Date Status ivory soap (uncoded) Unknown Allergy Active amoxicillin Amoxicillin hives, vomiting Drug Allergy Active sulfamethoxazole / trimethoprim Bactrim Unknown Drug Allergy Active Adhesive rash Allergy Active choline magnesium trisalicylate Choline Magnesium Trisalicylate Hearing loss Drug Allergy Active Penicillin hives, vomiting Drug Allergy Active REASON FOR VISIT At Risk Footcare, Painful Nail(s) aggravated by shoes and causing difficulty standing/walking., ToeIrritation Medications Medication SIG (Take, Route, Frequency, Duration) Notes Start Date End Date Status Inhaler Companions N ot-Taking Vitamin D Not-Taking Vitamin B Complex No t-Taking Protonix Not-Taking Vitamin B12 3000 MCG/ML Sublingual Not-Taking Iron Not-Taking Zinc Not-Taking Vitamin B 12 Not-Narciso ing Vitamin C Not-Taking Motrin Not-Taking Compression Stockings Not-Taking Diabetic Insoles Not -Taking Hair Skin Nails Not- Taking Tylenol Arthritis Pain Not-Taking Lasix 20 MG 1 tablet Orally Once a day for 30 day(s) Not-Taking metFORMIN HCl 500 MG as directed Active Lisinopril 10 MG 1 tablet Orally Once a day for 30 day(s) Active Crestor Active Aspirin 81 MG 1 tablet Orally Once a day for 30 day(s) Active Magnesium 250 MG 1 tablet with a meal Orally Once a day for 30 day(s) Active Social History Tobacco Use: Social History Observation Description Date Details (start date - stop date) Never Smoker NA - NA Alcohol Screen Question Answer Notes Did you have a drink containing alcohol in the p ast year? No Points 0 Interpretation Negative Tobacco use other than smoking: Question Answer Notes Are you an other tobacco user? No Tobacco Control (Standard) Question Answer Notes Tobacco use: Nonsmoker Problems Problem Type SNOMED Code ICD Code Onset Dates Problem Status W/U Status Risk Notes Problem Acquired hammer toe of right foot (7109755393356 105) Other hammer toe(s) (acquired), right foot (M20.41) Active confirmed Problem Acquired hammer toe of left foot (3285756550959 103) Other hammer toe(s) (acquired), left foot (M20.42) Active confirmed Problem Type 2 diabetes mellitus with peripheral angiopathy (935908149) Type 2 diabetes mellitus with diabetic peripheral angiopathy without gangrene (E11.51) Active confirmed Q7(A), Q8(2B), Q9(1B,2C) Vital Signs Height 4 ft 11 in in 03/06/2024 Weight 195 lbs 03/06/2024 BMI 39.38 kg/m2 03/06/2024 Blood pressure systolic 120 mm Hg 03/06/19 25 Blood pressure diastolic 70 mm Hg 025 Procedures Procedure Date Ordered Date Performed Result Body Sit e 89130-ZNDFHER NAIL, 6 OR MORE 03/06/2024 N/A 79019-UXXZ SKIN LESIONS, 2 TO 4 03/06/2024 N/A Encounters Encounter Location Date Provider Diagnosis [facility] [address] [address] 03/06/2024 Khoa Yao Tinea unguium B35.1 ; Type 2 diabetes mellitus with diabetic peripheral angiopathy without gangrene E11.51 ; Pain in right toe(s) M79.674 ; Pain in left toe(s) M79.675 ; Other hammer toe(s) (acquired), right foot M20.41 and Other hammer toe(s) (acquired), left foot M20.42 Assessments Encounter Date Diagnosis (ICD Code) Assessment Notes Treatment Notes Treatment Clinical Notes Section Notes 03/06/2024 Tinea unguium (ICD-10 - B35.1) 03/06/2024 Type 2 diabetes mellitus with diabetic peripheral angiopathy without gangrene (ICD-10 - E11.51) Q7(A), Q8(2B), Q9(1B,2C) 03/06/2024 Pain in right toe(s) (ICD-10 - M79.674) 03/06/2024 Pain in left toe(s) (ICD-10 - M79.675) 03/06/2024 Other hammer toe(s) (acquired), right foot (ICD-10 - M20.41) 03/06/2024 Other hammer toe(s) (acquired), left foot (ICD-10 - M20.42) Plan Of Treatment Pending Test Test Name Order Date 01140-UAZBDEF NAIL, 6 OR MORE 03/06/2024 64927-ZSSD SKIN LESIONS, 2 TO 4 03/06/19 25 Next Appt Details Follow Up: prn, Reason: Provider Name:Khoa Yao , 10/09/2024 01:00:00 PM, [address] [place] [address], [id number], Procedure Notes * Category Sub-Category Detail Notes Debride Nail 6-10 Nail debridement Due to the cl inical pathology outlined in the exam findings, performance of this nail treatment is medically necessary as its management by an unskilled/untrained nonprofessional would put this patients foot and overall health at risk. Therefore, debridement to affected nail(s), as described in exam ( TA, T1, T2, T3, T4, T5, T6, T7, T8, T9), was performed exclusively by the physician of record to reduce/remove overall nail length, girth, thickness, subungual debris, and necrotic tissue, by manual and/or electrical means through the use of a nail nipper and/or dremel-type notch grinder, to a more viable healthy nail plate or bed tissue 6-10 nails in total. Silver nitrate was used for any petechial bleeding as necessary. Definitive antifungal treatment options, both pharmaceutical and surgical, have been reviewed and discussed with the patient. The patient solely prefers the use of intermittent/as needed professional debridement services for their nail condition and understands the need for additional periodic treatments to maintain effectiveness in symptomatic relief - Keratoma Treatment Parring or Cutting o f Benign Hyperkeratotic Lesion(s) (-56) 2-4 Lesions - Due to the at risk nature of the patients medical condition as documented in the exam findings, performance of this keratoderma treatment is medically necessary as its management by an unskilled/untrained nonprofessional would put this patients foot and overall health at risk. Therefore, the benign hyperkeratotic lesions, ( 2) in total, locations as stated and described in the exam ( Plantar Heel(s), B/L), were pared, and/or cut utilizing a sterile 15 blade, tissue nippers, and/or power dremel instrumentation by the physician of record - 24975, Q8 Progress Notes * Darlene SAMUEL RDOB:1940 (84 yo F)Acc No.[id number]:03/06/2024 Progress Note Patient:?Darlene SAMUEL Provider:?Khoa Yao DPM :1940???Age:84 Y???Sex:Female D ate:03/06/2024 Address:[address] [place], [place] [id number] Pcp:Marco Santiago MD Subjective: * Chief Complaints: * ???At Risk FootcarePainful N ail(s) aggravated by shoes and causing difficulty standing/walking.Toe Irritation * HPI: ???At Risk footcare:?Pt States Last PCP Visit:?Date?11/29/2023 ???Toe pain:?Location:?B/L feet.?Duration:?several years.?Course:?worse.?Aggravated by:?shoes, any pressure.?Treatments:?change in shoes.? * ROS:?General/Constitutional:?Nausea?denies, denies.?Vomiting?denies, denies.?Hunger Thirst?denies, denies.?Loss appetite?denies, denies.?Chills?denies, denies.?Fatigue?denies, denies.?Fever?denies, denies.?Night Sweats denies, denies.?Unexplained weight loss?denies, denies.?Unexplained weight gain?denies, denies.?HEENTM:?Dentures?denies, denies.?Dizziness?denies, denies.?Glasses/contacts?admits.?Retinopathy?denies, denies.?Blurred/double vision?denies, denies.?TMJ?denies, denies.?Discharge/drainage?denies, denies. Implants?denies, denies.?Sore throat?denies, denies.?Dental implants?denies, denies.?Hard of hearing ?denies, denies.?Difficulty chewing/swallowing/speaking?denies, denies.?Nose bleeds?denies, denies.?Sore mouth?denies, denies.?Respiratory:?On Oxygen?denies, denies.?Pneumonia/pleurisy?denies, denies.?Bronchitis?denies, denies.?Emphysema?denies, denies.?Coughing?denies, denies.?Cough blood?denies, denies.?Shortness of breath?denies, denies.?Wheezing?denies, denies.?Cardiovascular:?Pacemaker?denies, denies.?MVP?denies, denies.?WPW?denies, denies.?CHF?denies, denies.?Heart attack?denies, denies.?Septal defect?denies, denies.?Rapid beat?denies, denies.?Chest pain ?denies, denies.?Atrial Fib.?denies, denies.?Murmur/Palpitations?denies, denies.?Gastrointestinal:?Hemorrhoids?denies, denies.?Stomach/Abdominal pain?denies, denies.?Dark blood stool?denies, denies.?Irritable bowel ?denies, denies.?Constipation?denies, denies.?Diarrhea?denies, denies.?Hematology:?Swelling?admits.?Clots?denies, denies.?Varicose Veins?admits.?Bruising?denies, denies.?Bleeding problem?denies, denies.?Genitourinary:?Blood urine?denies, denies.?Frequent/Painfu/urination/bladder control?denies, denies.?Kidney stones?denies, denies.?Infection (UTI)?denies, denies.?Nephropathy?denies, denies.?sex trans dis (STD)?denies, denies.?Prostate?denies, denies.?Musculoskeletal:?Hammertoes?admits.?Bunions?denies, denies.?Back Pain?denies, denies.?Muscle Cramps/ Resting?denies, denies.?Muscle cramps / walking?denies, denies.?Generalized aches and pains?denies, denies.?Weakness?denies, denies.?Integ.:?Senior?denies, denies.?Scars?denies, denies.?Corns/calluses?admits.?Ingrown nails?admits.?Painful nails?admits.?Open Sores?denies, denies.?Rashes?denies, denies.?Neurologic:?Difficulty sleeping?denies, denies.?Brain disorder?denies, denies.?Numbness?denies, denies.?Balance trouble?admits.?Confusion?denies, denies.?Fainting/blackouts?denies, denies.?Tingling?denies, denies.?Tremors?denies, denies.? * Medical History:? * Surgical History:?Denies Pas t Surgical History * Hospitalization/Major Diagno stic Procedure:?Denies Past Hospitalization * Family History:?Mother: dece ased, diagnosed with Other malignant neoplasm of unspecified site, Diabetic - NIDDM.?Father: , diagnosed with Diabetic - NIDDM.?Spouse: .? * Social History:?Tobacco Use:?Tobacco use other than smoking?Are you an other tobacco user??No ?Tobacco Control (Standard)?Tobacco use:?Nonsmoker ???Drugs/Alcohol:?Drugs?Have you used drugs other than those [...] Objective: * Vitals:?Ht: 4 ft 11 in, Wt:1 95, BMI: 39.38, Shoe size:8, BP:120/70mm Hg, BS:137, Wt-k.45 kg. * ???Past Orders: ???Lab:HEMOGLOBIN A1C (GLYCO HEMOGLOBIN) (Order Date - 04/29/2023) (Collection Date & Time - 04/29/2023 12:18 PM) ? Value Reference Range ?TOTAL HEMOGLOBIN (HGBA1C) 6.8 * Examination: ???Ophthalmology Referral: ?DIABETES EYE EXAM?Procedure Performed:?No ?Eye Exam not performed:?No reason specified ?Findings of Diabetic Eye Exam:?no retinopathy?Vascular: ?DP PULSES (B):? 0/4, B/L?.?PT PULSES (B):? 0/4, B/L.?CAPILLARY FILL TIME:? delayed, all digits, B/L?.?TROPHIC CONDITION-TEXTURE/ELASTICITY/TURGOR/HAIR GROWTH (B):? decreased, fragile, thin, shiny skin, with sparse to absent hair growth, B/L.?TEMPERTURE GRADIENT (C):? decreased, cool to cool, proximal to distal, B/L.?PIGMENTATION:?rubrous, B/L.?EDEMA (C):?4/4, pitting, without aching pain, Leg(s), Ankle(s), Foot, B/L.?CLAUDICATION (C):?denies, B/L.?REST PAIN:?denies, B/L.?PARESTHESIA (C):?absent, B/L.?BURNING (C):?absent, B/L.?Nails: ?NAILS are:? Elongated, overgrown, dystrophic, lytic, greater than 3mm thick, discolored and friable with crumbly malodorous subungual debris, with pain on palpation,?TA, T1, T2, T3, T4, T5, T6, T7, T8, T9.?Dermatologic: ?SKIN FINDINGS:?Skin exam reveals Keratotic lesion(s) located at , Plantar Heel(s), B/L.?Orthopedic: ?MUSCLE STRENGTH:?Generalized decrease in strength, B/L.?GAIT ABNORMALITY:?apropulsive, walker-assisted, unstable/unsteady relating occasional difficulty with balance.?FOOT MORPHOLOGY:?(-) Charcot collapse/destruction noted at MTJ.?DIGITAL DEFORMITIES:?Digital contracture, PIPJ, 2-5 B/L, incompl-reducible to push-up test, no over, nor underlapping,?there is?evidence of shoe producing skin irritation.?FOOTWEAR:?worn, non-supportive, shoe gear properties exacerbate patient's foot/toe deformity.?Neurological: ?SENSORY:?Neurological exam reveals intact sensorium, pain sensation normal, vibration sensation intact, pinprick sensation is normal in the lower extremities, 5.07 monofilament test performed at plantar aspects of 5 varied sites per foot shows sensation, normal, B/L, Pt denies, anesthesia, burning, paresthesia, tingling, B/L.?General Examination: ?GENERAL APPEARANCE:?Reveals a pleasant, alert, well nourished, well- developed, well hydrated individual, who demonstrates proper attention to hygiene/body habitus, and is in no acute distress, Pt serves as own historian for office visit today.?ORIENTED:?person, place, and time.?FOOT EXAM:?Lower Extremity Neurological Exam performed:?Yes Date ?Visual exam of foot performed:?Yes ?Date?03/06/2024 ?Footwear Evaluation?Footwear Evaluation performed:?Yes??? Assessment: * Assessment: 1.?Type 2 diabetes mellitus with diabetic peripheral angiopathy without gangrene - E11.51 (Primary)???Notes :Q7(A), Q8(2B), Q9(1B,2C)???2.?Tinea unguium - B35.1???3.?Pain in right toe(s) - M79.674???4.?Pain in left toe(s) - M79.675???5.?Other hammer toe(s) (acquired), right foot - M20.41???Specify :Chronic problem, Worse (4),Rx Management (4)???6.?Other hammer toe(s) (acquired), left foot - M20.42???Specify :Chronic problem, Worse (4),Rx Management (4)??? Plan: * Treatment: 2.?Tinea unguium?Procedure: 10757-XAINCFU NAIL, 6 OR MORE * Procedures:?Debride Nail 6-10:?Nail debridement?Due to the clinical pathology outlined in the exam findings, performance of this nail treatment is medically necessary as its management by an unskilled/untrained nonprofessional would put this patients foot and overall health at risk. Therefore, debridement to affected nail(s), as described in exam ( TA, T1, T2, T3, T4, T5, T6, T7, T8, T9), was performed exclusively by the physician of record to reduce/remove overall nail length, girth, thickness, subungual debris, and necrotic tissue, by manual and/or electrical means through the use of a nail nipper and/or dremel-type notch grinder, to a more viable healthy nail plate or bed tissue 6- 10 nails in total. Silver nitrate was used for any petechial bleeding as necessary. Definitive antifungal treatment options, both pharmaceutical and surgical, have been reviewed and discussed with the patient. The patient solely prefers the use of intermittent/as needed professional debridement services for their nail condition and understands the need for additional periodic treatments to maintain effectiveness in symptomatic relief - 01776.?Keratoma Treatment:?Parring or Cutting of Benign Hyperkeratotic Lesion(s)?(-56) 2-4 Lesions - Due to the at risk nature of the patients medical condition as documented in the exam findings, performance of this keratoderma treatment is medically necessary as its management by an unskilled/untrained nonprofessional would put this patients foot and overall health at risk. Therefore, the benign hyperkeratotic lesions, ( 2) in total, locations as stated and described in the exam (?Plantar Heel(s),?B/L), were pared, and/or cut utilizing a sterile 15 blade, tissue nippers, and/or power dremel instrumentation by the physician of record - 57532, Q8.? * Procedure Codes:?19701 DEBRI DE NAIL, 6 OR MORE, Modifiers: XS 06533 TRIM SKIN LESIONS, 2 TO 4, Modifiers: XS , [id number] TOBACCO NON-USER * Preventive Medicine:? ??Counseling:?Discussion:?-14: Office or other outpatient visit for the evaluation and management of an established patient, which required a medically appropriate history and/or examination and MODERATE level of DECISION MAKING for: 1 OR MORE CHRONIC PROBLEM(S) THATS WORSENING, 2 STABLE CHRONIC PROBLEMS, A NEWLY DIAGNOSED PROBLEM WITH UNCERTAIN PROGNOSIS, AN ACUTE COMPLICATED INJURY WITH MULTIPLE TREATMENT OPTIONS, OR AN ACUTE PROBLEM WITH ACCOMPANYING SYSTEMIC SYMPTOMS, THAT POSE(S) A MODERATE RISK OF MORBIDITY. THIS CONDITION MAY ALSO INCLUDE RX DRUG MANAGEMENT, OR A DECISON FOR MINOR SURGERY. The visit on the day of the encounter encompassed interpreting the data and educating the patient as to the nature of their condition, treatment options available according to their individual PMH, meds, allergies, and overall health/living conditions, as well as any potential risks or complications that may occur from a failure to adhere to, and participate in, the recommended course of therapy. The discussion included a complete verbal, and/or written explanation of the examination results, any x-rays taken, the proposed diagnosis, and outline of the treatment plan. A schedule for future care needs was also explained. The patient verbalized an understanding of the instructions at this time and agreed to be an active participant in their treatment. If the patient should think of any questions or concerns after the visit, I have encouraged the patient to call the office.?Digital Surgery:?Digital surgery was discussed with the patient, We elected to try conservative treatment at the present time, due to the patients medical history and increased asssociated post-operative risks.?Digital Treatment:?HT- I explained to the patient the possible etiologies of Hammertoes, including genetics/foot type/shoegear/activity level/exercise routine and the risks/benefits of all the different treatment options for their pain including: No treatment at all, Rest, Ice, New/supportive/wider/deeper Shoegear, Digital Padding/Strapping/Taping/Bracing/Gel protective sleeves, Foot/Ankle AFO Bracing, Stretching exercises, Deep Tissue Massage, Arch support/shoe inserts with splay metatarsal padding, and Custom orthoses. I insisted that any digital devices be removed daily and not worn overnight for safety. The patient is to carefully examine the toes daily for any skin irritation while using any splinting or padding device. The advantages and disadvantages of each option were discussed and the patients questions re: shoegear, padding, custom vs prefabricated inserts, activity level, and consistency in home treatment regimens for optimal success were answered to their verbally confirmed satisfaction.?Shoe Gear Counseling:?SHOE Rx - The patient was counseled in great detail on their muscoloskeletal foot and toe deformities which coincided with the dermatological presentations visualized on exam. We discussed how their deformities put the integrity of their feet at risk for potential pedal complications which makes the accomidative diabetic shoes and cutomizable inserts medically necessary. We discussed the different shoe and insert treatment types and options, as well as the important advantages for adhering to regularly wearing these accomidative devices daily. The patient was made aware of the fact that a failure to abide by these recommedations may be deleterious to their foot health as they are able to prevent many pedal complications such as skin irritation, skin ulceration, infection, and even loss of toe/foot/leg/or life. Time was also spent with the patient dispensing and discussing proper diabetic footcare techniques including daily skin moisturization, daily foot inspection for any interruption in skin integrity including open lesions, or sign of infection such as redness/malodor/drainage/swelling. Also discussed and recommended were procedures regarding daily shoe inspection for the presence of internal foreign bodies as well as any visualized irregular shoe or insert wear. Patient questions re: shoes, inserts, and self foot inspections were answered to their satisfaction as the patient verbally confirmed a full understanding of the above information, Patient defers recommended Orthopedic shoes.? ??Screening/Special Tests:?Fall Risk?Assessment:?Performed ?Plan of Care:?Documented ?Type of fall plan of care:?Balance, strength and gait training or instruction provided ?Screening:?One fall with injury in the past year ?FALLS: Screening for Future Fall Risk?Have you had two or more falls in the past year??No ?Have you had any falls with injury in the past year??Yes * Follow Up:?prn * Images: * Sign off status: Completed true * Provider:?Khoa Yao DPM Date:?2024 Generated for Benito pearson/Mahesh/Antonette on:?07/04/2024 12:25 PM EDT History and Physical Notes * HPI (History of Present Illness) Category Sub-Category Detail Notes Category Not es Toe pain Location: B/L feet Duration: several years Course: worse Aggravated by: shoes, any pressure Treatments: change in shoes At Risk footcare Pt States Last PCP Visit: Date: Examination Category Sub-Category Detail Notes Category Not es Neurological SENSORY: Neurological exa m reveals intact sensorium, pain sensation normal, vibration sensation intact, pinprick sensation is normal in the lower extremities, 5.07 monofilament test performed at plantar aspects of 5 varied sites per foot shows sensation, normal, B/L, Pt denies, anesthesia, burning, paresthesia, tingling, B/L Dermatologic SKIN FINDINGS: Skin exam reveal s Keratotic lesion(s) located at , Plantar Heel(s), B/L Orthopedic GAIT ABNORMALITY: apropulsive, w alker-assisted, unstable/unsteady relating occasional difficulty with balance FOOT MORPHOLOGY: (-) Charcot collapse /destruction noted at MTJ FOOTWEAR EVALUATION: worn, non-supportiv e, shoe gear properties exacerbate patient's foot/toe deformity DIGITAL DEFORMITIES: Digital contracture , PIPJ, 2-5 B/L, incompl-reducible to push-up test, no over, nor underlapping, there is evidence of shoe producing skin irritation MUSCLE STRENGTH: Generalized decrease in strength, B/L General Examination GENERAL APPEARANCE: Reveals a pleasant, alert, well nourished, well-developed, well hydrated individual, who demonstrates proper attention to hygiene/body habitus, and is in no acute distress, Pt serves as own historian for office visit today FOOT EXAM: Lower Extremity Neurological Exa m performed:: Yes Date Visual exam of foot performed:: Yes Date: 03/06/2024 ORIENTED: person, place, and t dori Footwear Evaluation Footwear Evaluation performe d:: Yes Ophthalmology Referral DIABETES EYE EXAM Procedure Perform ed:: No Eye Exam not performed:: No reason speci fied Findings of Diabetic Eye Exam:: no retin opathy Vascular DP PULSES (B): 0/4, B/L PT PULSES (B): 0/4, B/L CAPILLARY FILL TIME: delayed, all digits , B/L TEMPERTURE GRADIENT (C): decreased, cool to cool, proximal to distal, B/L TROPHIC CONDITION-TEXTURE/ELASTICITY/TURGOR/HAIR GROWTH (B): decreased, fragile, thin, shiny skin, wi th sparse to absent hair growth, B/L EDEMA (C): 4/4, pitting, withou t aching pain, Leg(s), Ankle(s), Foot, B/L CLAUDICATION (C): denies, B/L REST PAIN: denies, B/L PIGMENTATION: rubrous, B/L PARESTHESIA (C): absent, B/L BURNING (C): absent, B/L Nails NAILS are: Elongated, overg rown, dystrophic, lytic, greater than 3mm thick, discolored and friable with crumbly malodorous subungual debris, with pain on palpation, TA, T1, T2, T3, T4, T5, T6, T7, T8, T9
--- OUTSIDE RECORDS SUMMARY | 2024-07-04 12:25 | XMS_ITS | Clinical Summary ---
Author Organization [facility] it Address [address] [place] [address] Care Team Providers Care Radio Journalist Name Role Phone Unavailable Primary Care Provider Unavailabl e Social History Tobacco Use Types Packs/Day Years Used Date Smoking Tobacco: Never Assessed Comments Unknown Sex and Gender Information Value Date Recorded Sex Assigned at Not on file Legal Sex Female 1:39 PM EDT Gender Identity Not on file Sexual Orientation Not on file Plan of Treatment Health Maintenance Due Date Last Done Comments DTaP,Tdap,and Td Vaccines (1 - Tdap) 1961 Pneumococcal Vaccine: 50+ Ye ars (1 of 1 - PCV) 1992 Zoster Vaccines (1 of 2) 1992 RSV Immunization Adult Patie nts (1 - 1-dose 75+ series) 2017 Depression Screening 09/21/2023 Falls Risk Assessment 09/21/2023 Osteoporosis Screening (Bone Density Screening) 09/21/2023 Social Influencers of Health Screening 09/21/2023 COVID-19 Vaccine ( - 2023-2 5 season) 2023 Influenza Vaccine (Season Ended) 2024 HIB Vaccines Aged Out No longer eligi ble based on patient's age to complete this topic HPV Vaccines Aged Out No longer eligi ble based on patient's age to complete this topic Hepatitis A Vaccines Aged Out No long er eligible based on patient's age to complete this topic Hepatitis B Vaccines Aged Out No long er eligible based on patient's age to complete this topic IPV Vaccines Aged Out No longer eligi ble based on patient's age to complete this topic MMR Vaccines Aged Out No longer eligi ble based on patient's age to complete this topic Meningococcal ACWY Vaccine Aged Out N o longer eligible based on patient's age to complete this topic Meningococcal B Vaccine Aged Out No l onger eligible based on patient's age to complete this topic RSV Immunization Patients Un juana 20 months Aged Out No longer eligible b ased on patient's age to complete this topic Varicella Vaccines Aged Out No longer eligible based on patient's age to complete this topic
--- OUTSIDE RECORDS SUMMARY | 2024-07-04 12:25 | XMS_ITS ---
Author Organization [facility] Address [address] [place] [address] Care Team Providers Care Overlock Operator Name Role Phone Marco Santiago MD Primary Care Provider Khoa Díaz Unavailable [phone] Allergies Allergen (clinical drug ingredient) Drug/Non Drug [...] Nail(s) aggravated by shoes and causing difficulty standing/walking. Medications Medication SIG (Take, Route, Frequency, Duration) Notes Start Date End Date Status Vitamin B Complex No t-Taking Protonix Not-Taking Vitamin B12 3000 MCG/ML Sublingual Not-Taking Inhaler Companions N ot-Taking Vitamin D Not-Taking Vitamin B 12 Not-Narciso ing Vitamin C Not-Taking Motrin Not-Taking Iron Not-Taking Zinc Not-Taking Tylenol Arthritis Pain Not-Taking Compression Stockings Not-Taking Lasix 20 MG 1 tablet Orally Once a day for 30 day(s) Not-Taking Hair Skin Nails Not- Taking Diabetic Insoles Not -Taking Crestor Active Aspirin 81 MG 1 tablet [...] ast year? No Points 0 Interpretation Negative Vital Signs Height 4 ft 11 in in 06/12/2024 Weight 195 lbs 06/12/2024 BMI 39.38 kg/m2 06/12/2024 Blood pressure systolic 120 mm Hg 06/13/19 25 Blood pressure diastolic 60 mm Hg 025 Procedures Procedure Date Ordered Date Performed Result Body Sit e 13675-YSSKHIB NAIL, 6 OR MORE 06/12/2024 N/A 40037-HYZF SKIN LESIONS, 2 TO 4 06/12/2024 N/A Encounters Encounter Location Date Provider Diagnosis [facility] [address] 06/12/2024 Khoa Yao Tinea unguium B35.1 ; Type 2 diabetes mellitus with diabetic peripheral angiopathy without gangrene E11.51 ; Pain in right toe(s) M79.674 and Pain in left toe(s) M79.675 Assessments Encounter Date Diagnosis (ICD Code) Assessment Notes Treatment Notes Treatment Clinical Notes Section Notes 06/12/2024 Tinea unguium (ICD-10 - B35.1) 06/12/2024 Type 2 diabetes mellitus with diabetic peripheral angiopathy without gangrene (ICD-10 - E11.51) Q7(A), Q8(2B), Q9(1B,2C) 06/12/2024 Pain in right toe(s) (ICD-10 - M79.674) 06/12/2024 Pain in left toe(s) (ICD-10 - M79.675) Plan Of Treatment Pending Test Test Name Order Date 51298-DPEWLMO NAIL, 6 OR MORE 06/12/2024 72920-KBZU SKIN LESIONS, 2 TO 4 06/13/19 25 Next Appt Details Follow Up: prn, Reason: Provider Name:Khoa Yao , 10/09/2024 01:00:00 PM, [address] [place] [address], [id number], Procedure Notes * Category Sub-Category Detail Notes [...] T3, T4, T5, T6, T7, T8, T9 ), was performed exclusively by the physician of record to reduce/remove overall nail length, girth, thickness, subungual debris, and necrotic tissue, by manual and/or electrical means through the use of a nail nipper and/or dremel-type razor grinder, to a more viable healthy nail [...] to maintain effectiveness in symptomatic relief - 29451 Keratoma Treatment Parring or Cutting o f [...] described in the exam ( Plantar Heel(s), B/L ), were pared, and/or cut utilizing a sterile 15 blade, tissue nippers, and/or power dremel instrumentation by the physician of record - 68213, Q8 Progress Notes * Darlene SAMUEL RDOB:1940 (84 yo F)Acc No.[id number]:06/12/2024 Progress Note Patient:Darlene JACOBO Provider:?Khoa Yao DPM :1940???Age:84 Y???Sex:Female D ate:06/12/2024 Address:[address] [place] [address] [id number] Pcp:Marco Santiago MD Subjective: * Chief Complaints: * ???At Risk FootcarePainful N ail(s) aggravated by shoes and causing difficulty standing/walking. * HPI: ???At Risk footcare:?Pt States Last PCP Visit:?Date?11/29/2023 States has an appt with PCP soon - May ?Misc?Patient accompanied by, Daughter,JUN, who is physically present in exam room at time of visit.? * ROS:?General/Constitutional:?Nausea?denies, denies.?Vomiting?denies, denies.?Hunger Thirst?denies, denies.?Loss appetite?denies, [...] medical reasons in the past 12 months??No ???Miscellaneous:?Caffeine: yes, frequency: pepsi. ?Children: yes, 4. ?Exercise: no. ?Marital status: . ?Occupation: Retired-[employer]. ???Drug/Alcohol:?AUDIT-C (Standard)?Did you have a drink containing alcohol in the past year??No ?Points?0 ?Interpretation?Negative * Medications:?TakingAspirin 8 1 MG Tablet Chewable [...] in, Wt:1 95, BMI: 39.38, Shoe size:8, BP:120/60mm Hg, BS:not taken, Wt-k.45 kg. * ???Past Orders: ???Lab:HEMOGLOBIN A1C (GLYCO HEMOGLOBIN) (Order Date - 04/29/2023) (Collection Date & Time - 04/29/2023 12:18 PM) ? Value Reference Range ?TOTAL HEMOGLOBIN (HGBA1C) 6.8 * Examination: ???Ophthalmology Referral: ?DIABETES EYE EXAM?Procedure Performed:?Yes ?Date of Exam Performed?04/22/2023 ?Diabetic Retinopathy Screening:?Yes ?Retinal Screening Performed:?Yes ?Findings of Diabetic Eye Exam:?no retinopathy?Vascular: ?DP [...] Keratotic lesion(s) located at , Plantar Heel(s), B/L.? Assessment: * Assessment: 1.?Type 2 diabetes mellitus with diabetic peripheral angiopathy without gangrene - E11.51 (Primary)???Specify :Q8???Notes :Q7(A), Q8(2B), Q9(1B,2C)???2.?Tinea unguium - B35.1???3.?Pain in right toe(s) - M79.674???4.?Pain in left toe(s) - M79.675??? Plan: * Treatment: 2.?Tinea unguium?Procedure: 19932-TUQQZWK NAIL, 6 OR MORE * Procedures:?Debride Nail 6-10:?Nail debridement?Due to the clinical pathology outlined in the exam findings, performance of this nail treatment is medically necessary as its management by an unskilled/untrained nonprofessional would put this patients foot and overall health at risk. Therefore, debridement to affected nail(s), as described in exam ( TA, T1, T2, T3, T4, T5, T6, T7, T8, T9 ), was performed exclusively by the physician of record to reduce/remove overall nail length, girth, thickness, subungual debris, and necrotic tissue, by manual and/or electrical means through the use of a nail nipper and/or dremel-type razor grinder, to a more viable healthy nail [...] to maintain effectiveness in symptomatic relief - 70711.?Keratoma Treatment:?Parring or Cutting of Benign Hyperkeratotic Lesion(s)?(-56) [...] stated and described in the exam (?Plantar Heel(s),?B/L?), were pared, and/or cut utilizing a sterile 15 blade, tissue nippers, and/or power dremel instrumentation by the physician of record - 41171, Q8.? * Procedure Codes:?96027 DEBRI DE NAIL, 6 OR MORE, Modifiers: XS 99066 TRIM SKIN LESIONS, 2 TO 4, Modifiers: XS , Q8 * Follow Up:?prn * Images: * Sign off status: Completed true * Provider:?Khoa Yao DPM Date:?2024 Generated for Benito pearson/Mahesh/Antonette on:?07/04/2024 12:25 PM EDT History and Physical Notes * HPI (History of Present Illness) Category Sub-Category Detail Notes Category Not es At Risk footcare Pt States Last PCP Visit: Date: 11/29/2023 States has an appt with PCP soon - [facility] Patient accompanied by, Daughter, JUN, who is physically present in exam room at time of visit Examination Category Sub-Category Detail Notes Category Not es Dermatologic SKIN FINDINGS: Skin exam reveal s Keratotic lesion(s) located at , Plantar Heel(s), B/L Ophthalmology Referral DIABETES EYE EXAM Procedu re Performed:: Yes ?Date of Exam Performed: 04/22/2023 Diabetic Retinopathy Screening:: Yes Retinal Screening Performed:: Yes Findings of Diabetic Eye Exam:: no retin [...]
== END 2024-07-04 13:12 | disposition home or self-care (01) ==
LOC: HO.HMCHD 11:00
PROVIDERS: PCP Internal Medicine; Visit Provider Internal Medicine
DX: M19.90 Unspecified osteoarthritis, unspecified site (principal)

== ENCOUNTER → 2024-07-04 10:59 | Outpatient (BNVA) | payer MEDICARE, SELFPAY | PROVIDERS: PCP Internal Medicine; Visit Provider Internal Medicine | DX: M25.561 Pain in right knee (principal); M25.562 Pain in left knee; R13.10 Dysphagia, unspecified | CPT/HCPCS: 99202 ==

== ENCOUNTER 2024-07-30 15:32 | Outpatient (AMB) | payer MEDICARE, SELFPAY ==
--- NOTE | 2024-07-30 15:34 | MHC.PC.OV ---
Vital Signs 07/30/24 15:43 Height 4 ft 11 in Respiration 16 Pulse 72 Pulse Source Pulse Oximeter Temp 97.5 F Temp Source Temporal Artery Scan Pulse Oximetry (%) 97 Oxygen Delivery Method Room Air Intake Visit Reasons: 2 week follow up [facility] Required: No Accompanied by: Daughter Allergies penicillin G [Penicillin G] Allergy (Unknown, Verified 07/30/24 15:40) RASH Medication List - Last Reconciled 07/31/24 by MICHAEL Calero furosemide 40 mg PO DAILY lisinopril 10 mg PO DAILY mupirocin 2% 1 appl topical BID PRN rosuvastatin 20 mg PO DAILY Tobacco use date assessed: 07/04/24 Dental Screening Dental Screen Date: 07/04/24 HPI HPI Comments History of Present Illness Details 84-year-old female with history of hypertension, type 2 diabetes, hyperlipidemia presents to the office today accompanied by her daughter, Jackie, for management of chronic conditions as well as to discuss multiple complaints. Biggest complaint concerns bilateral lower extremity edema. She states this has been going on for 2.5 months and is quite bothersome. She is concerned about the cause of the edema. She states she fell in March of 2023 and fractured her shoulder. She also has chronic low back pain without radiculopathy. Since the fall, she has worked with physical therapy as well as chiropractic. She has declined physically. She was previously ambulatory with a walker with assistance. However, is now primarily in a wheelchair though following physical therapy has been able to stand with accompanying walker but has not ambulated much. She states she does stand to do the dishes among other activities. However, it is primarily stationary with prolonged sitting and standing. She was seen in the office several weeks ago and was given a prescription for furosemide 40 mg daily but has not been taking this. She states she has also tried compression stockings in the past but is unable to get these on. She does sleep in a chair due to the low back pain and does elevate her legs. She is not following a low-sodium diet. She denies any dyspnea on exertion, orthopnea. She has also been following with ortho for cortisone injections in her knees. She is also reporting dysphagia that has been ongoing for several months. Does not require modification of diet. She feels like something is stuck in the back of her throat and feels she has white patches. She discontinued all of her medications when she fell. She states she felt like this contributed to the swelling in the legs though she states the swelling started 2.5 months ago. She is also reporting small pustules that appear on her face for which she uses bactroban and is looking for refill. ROS: General: No fevers, malaise, unintentional weight loss Cardiovascular: No chest pain, palpitations. see hpi Respiratory: No shortness of breath, wheezing, cough. See hpi MSK: see hpi Neuro: No headaches, paresthesias Skin: No rashes or lesions EXAM: Constitutional - Awake and Alert, No apparent distress, seated in wheelchair Eyes - PERRL Mouth- mucosa moist, tongue midline. Posterior oroopharynx without significant erythema, no exudates/white patches Cardiovascular - S1S2, RRR, no jvd Respiratory - Normal lung expansion, Normal respiratory effort, No respiratory distress, CTA bilaterally Extremities - no calf tenderness bilaterally. 3+ edema BLE. thickened slightly hyperpigmented skin distal third of lower legs Skin - Warm/Dry Neurological - Alert & oriented x3 Psychological - Appropriate affect [facility] Medical History (Updated 07/30/24 @ 16:16 by MICHAEL Calero) Gait instability Bilateral leg weakness HLD (hyperlipidemia) HTN (hypertension) Diabetes Lower extremity edema History of shoulder fracture Osteoarthritis Family History (Updated 07/04/24 @ 11:40 by Domi Newman MA) Mother No problems noted. Father No problems noted. Social History Housing: House Patient Tobacco Use Status: Never used Tobacco e-Cigarette/Vaping Use: Never Used service: No Current occupational status: retired Cognitive needs: No Hearing needs: Yes (both hear aids. she doesn't have a rx for them and she borrowed them) Vision needs: Yes (rx glasses) Questionnaire Thrive Questionnaire Date Thrive assessed: 07/04/24 DAMIAN-7 AMB Questionnaire DAMIAN-7 Date DAMIAN - 7 assessed: 07/04/24 Source: Developed by Drs. Santiago Burkett, Tanja Lucas, Ted Cotton and colleagues, with an educational anisha from [employer]. Physical exam (Primary Care) Vital Signs: Last Vital Signs Temp 97.5 F 07/30/24 15:43 Pulse 72 07/30/24 15:43 Resp 16 07/30/24 15:43 Pulse Ox 97 07/30/24 15:43 Oxygen Delivery Method Room Air 07/30/24 15:43 Tobacco/Smoking Status: Tobacco use Status Tobacco use date assessed 07/04/24 07/30/24 15:39 Patient Tobacco Use Status Never used Tobacco 07/30/24 15:39 e-Cigarette/Vaping Use Never Used 07/30/24 15:39 Thrive Assessment: Date of Thrive Assessment Date Thrive assessed 07/04/24 07/30/24 15:39 Coding Level of Care Code Est Pt Level 5 (50622) Complex EM visit Add On G2211 Diagnoses Lower extremity edema R60.0 Bilateral leg weakness R29.898 Gait instability R26.81 Dysphagia R13.10 HTN (hypertension) I10 HLD (hyperlipidemia) E78.5 Diabetes E11.9 Time Spent (min) 45 Assessment & Plan Assessment & Plan (1) Lower extremity edema: Code(s): R60.0 - Localized edema Category: Medical Plan: Suspect multifactorial related to venous insufficiency given presence of venous stasis as well as a dependent edema. We will check BMP to evaluate renal function as a contributing factor. Low suspicion for cardiac etiology based on history. The patient does desire to walk and has been primarily wheelchair-bound with the exception of transferring to stand with walker. She is referred to physical therapy through [facility] to assist with this. Recommend compression stockings, low-sodium diet, leg elevation. Will also prescribe Lasix 40 mg to be taken daily. Recheck BMP at follow up visit (2) Bilateral leg weakness: Code(s): R29.898 - Other symptoms and signs involving the musculoskeletal system Category: Medical Plan: Likely due to deconditioning given she has been primarily wheelchair-bound and nonambulatory since prior to her fall with some improvement following physical therapy. We will refer for physical therapy in the home (3) Gait instability: Code(s): R26.81 - Unsteadiness on feet Category: Medical Plan: Likely due to deconditioning given she has been primarily wheelchair-bound and nonambulatory since prior to her fall with some improvement following physical therapy. We will refer for physical therapy in the home (4) Dysphagia: Code(s): R13.10 - Dysphagia, unspecified Category: Medical Plan: Referred for barium swallow study (5) HTN (hypertension): Code(s): I10 - Essential (primary) hypertension Category: Medical Plan: Uncontrolled. Counseled on medication compliance. Lisinopril 10 mg daily prescribed. Recommend low-sodium diet. (6) HLD (hyperlipidemia): Code(s): E78.5 - Hyperlipidemia, unspecified Category: Medical Plan: Lipid panel ordered. Discussed medication compliance. Discussed the importance of statin adherence due to increased cardiovascular risk related to comorbidities (7) Diabetes: Code(s): E11.9 - Type 2 diabetes mellitus without complications Category: Medical Plan: Hemoglobin A1c ordered. Consult on medication compliance. We will consider resuming metformin if indicated however last hemoglobin A1c was controlled 5.6. Recommend diabetic diet. Annual eye exams Plan Follow-up in the office in 2-3 weeks. Labs to be completed following visit. Orders: Orders Complete Blood Count Auto Diff 07/30/24 E11.9 - Type 2 diabetes mellitus without complications, E78.5 - Hyperlipidemia, unspecified, I10 - Essential (primary) hypertension, R06.00 - Dyspnea, unspecified, R60.0 - Localized edema, Z87.81 - Personal history of (healed) traumatic fracture Hemoglobin A1c 07/30/24 E11.9 - Type 2 diabetes mellitus without complications, E78.5 - Hyperlipidemia, unspecified, I10 - Essential (primary) hypertension, R06.00 - Dyspnea, unspecified, R60.0 - Localized edema, Z87.81 - Personal history of (healed) traumatic fracture Lipid Panel 07/30/24 E11.9 - Type 2 diabetes mellitus without complications, E78.5 - Hyperlipidemia, unspecified, I10 - Essential (primary) hypertension, R06.00 - Dyspnea, unspecified, R60.0 - Localized edema, Z87.81 - Personal history of (healed) traumatic fracture Basic Metabolic Panel 07/30/24 E11.9 - Type 2 diabetes mellitus without complications, E78.5 - Hyperlipidemia, unspecified, I10 - Essential (primary) hypertension, R06.00 - Dyspnea, unspecified, R60.0 - Localized edema, Z87.81 - Personal history of (healed) traumatic fracture [place] barium swallow 07/30/24 R13.10 - Dysphagia, unspecified [facility]errals [facility] Referral E78.5 - Hyperlipidemia, unspecified, I10 - Essential (primary) hypertension, R13.10 - Dysphagia, unspecified, R26.81 - Unsteadiness on feet, R29.898 - Other symptoms and signs involving the musculoskeletal system Medications: New mupirocin 2% 1 appl topical BID PRN 22 grams 2RF pustules lisinopril 10 mg PO DAILY 90 tabs 1RF
[2024-07-30 15:43] VITALS: PULSE 72; RESP 16; TEMP 36.4; O2SAT 97
--- OUTSIDE RECORDS SUMMARY | 2024-07-30 16:45 | XMS_ITS | Clinical Summary ---
Author Organization [facility] it Address [address] [place] [address] Care Team Providers Care Manager Front Office Name Role Phone Unavailable Primary Care Provider [...]
== END 2024-07-30 16:29 | disposition home or self-care (01) ==
LOC: HO.HMCHD 15:32
PROVIDERS: PCP Internal Medicine; Visit Provider Physician Assistant
DX: R60.0 Localized edema (principal); E11.69 Type 2 diabetes mellitus with other specified complication; E78.5 Hyperlipidemia, unspecified; R29.898 Other symptoms and signs involving the musculoskeletal system; R26.81 Unsteadiness on feet; R13.10 Dysphagia, unspecified; I10 Essential (primary) hypertension

== ENCOUNTER 2024-07-30 15:32 | Outpatient (REF) | payer MEDICARE, SELFPAY ==
[2024-07-30 16:58] LABS: MANUAL DIFF FLAG NO
[2024-07-30 17:34] LABS: Anion Gap 12 (12-20); Blood Urea Nitrogen 15 mg/dL (9-16); Calcium 10.2 mg/dL (8.4-10.2); Carbon Dioxide 27 mmol/L (22-29); Chloride 109 mmol/L (96-108); Cholesterol 245 mg/dL (<200); Estimated Glomerular Filt Rate 57; Glucose Random 109 mg/dL (60-115); HDL Cholesterol 69 mg/dL (>40); LDL Cholesterol Calculated 157 mg/dL (<100); Potassium 3.8 mmol/L (3.3-5.1); Sodium 144 mmol/L (135-145); Triglycerides 95 mg/dL (<150)
[2024-07-30 17:47] LABS: Basophils Absolute Auto 0.1 X10*3/uL (0.0-0.2); Basophils Percent Auto 0.8 % (0-2); Eosinophils Absolute Auto 0.1 X10*3/uL (0.0-0.4); Eosinophils Percent Auto 1.8 % (0-4); Hematocrit 39.6 % (37.0-47.0); Hemoglobin 12.3 g/dl (12.0-16.0); Imm Gran Abs Auto 0.02 X10*3/uL (0.00-0.03); Imm Gran Pct Auto 0.3 % (0.0-0.4); Lymphocytes Absolute Auto 1.4 X10*3/uL (1.2-4.9); Lymphocytes Percent Auto 23.2 % (20-40); Mean Corpuscular HGB Conc 31.1 g/dl (31.0-35.0); Mean Corpuscular Hemoglobin 27.8 pg (27.0-33.0); Mean Corpuscular Volume 89.4 fL (80.0-98.0); Mean Platelet Volume 9.6 fL (9.4-12.3); Monocytes Absolute Auto 0.5 X10*3/uL (0.1-1.2); Monocytes Percent Auto 8.2 % (2-11); Neutrophils Absolute Auto 4.1 x10*3/uL (2.0-8.3); Neutrophils Percent Auto 65.7 % (45-73); Platelet Count 238 X10*3/uL (160-400); Red Blood Count 4.43 X10*6/uL (4.20-5.50); Red Cell Distribution Width 13.6 % (11.0-16.0); White Blood Count 6.2 X10*3/uL (4.8-10.8)
[2024-07-30 18:01] LABS: Estimated Average Glucose 151 mg/dL; Hemoglobin A1c % 6.9 % (<6.0)
== END 2024-07-30 15:33 | disposition home or self-care (01) ==
LOC: HO.LAB 15:32
PROVIDERS: PCP Internal Medicine; Visit Provider Physician Assistant
DX: R60.0 Localized edema (principal); R29.898 Other symptoms and signs involving the musculoskeletal system; R26.81 Unsteadiness on feet; R13.10 Dysphagia, unspecified; I10 Essential (primary) hypertension; E78.5 Hyperlipidemia, unspecified; E11.9 Type 2 diabetes mellitus without complications; R06.00 Dyspnea, unspecified; Z79.899 Other long term (current) drug therapy; Z87.81 Personal history of (healed) traumatic fracture
CPT/HCPCS: 36415; 80048; 80061; 83036; 85025; 99212

== ENCOUNTER 2024-08-13 13:42 | Outpatient (AMB) | payer MEDICARE, SELFPAY ==
--- NOTE | 2024-08-13 13:47 | MHC.PC.OV ---
Vital Signs 08/13/24 13:52 Height 4 ft 11 in BP 120/68 Pulse 69 Pulse Source Pulse Oximeter Temp 97.4 F Temp Source Temporal Artery Scan Pulse Oximetry (%) 98 Oxygen Delivery Method Room Air Comment wt not taken, wheelchair bound Intake Visit Reasons: 2 Week F/U Supervisor Agricultural Education Required: No Accompanied by: Daughter Allergies acetaminophen [From Percocet] Allergy (Mild, Verified 08/13/24 13:56) Vomiting choline salicylate [From Trilisate] Allergy (Mild, Verified 08/13/24 13:56) Unknown doxycycline Allergy (Mild, Verified 08/13/24 13:56) Vomiting magnesium salicylate [From Trilisate] Allergy (Mild, Verified 08/13/24 13:56) Unknown oxycodone [From Percocet] Allergy (Mild, Verified 08/13/24 13:56) Vomiting penicillin G [Penicillin G] Allergy (Unknown, Verified 08/13/24 13:56) RASH Medication List - Last Reconciled 08/13/24 by MICHAEL Calero blood sugar diagnostic (InStore [employer] Ultra Test strips) Check fasting glucose daily furosemide 40 mg PO DAILY lancets (InStore [employer] UltraSoft 2 Lancet) Check fasting glucose daily lisinopril 10 mg PO DAILY mupirocin 2% 1 appl topical BID PRN rosuvastatin 20 mg PO DAILY Tobacco use date assessed: 07/04/24 Dental Screening Dental Screen Date: 07/04/24 HPI HPI Comments History of Present Illness Details 84-year-old female with history of hypertension, type 2 diabetes, hyperlipidemia presents to the office today accompanied by her daughter, Jackie, for follow-up. She was seen in the office several weeks ago with concerns about bilateral lower extremity edema. Thought to be secondary to peripheral vascular disease as well as dependent edema. She has not been wearing compression stockings due to comfort. She does elevate her legs. She has been using furosemide 40 mg on most days which she does find helpful though still has some swelling. She has been working with physical therapy to assist with lower extremity weakness secondary to wheelchair use and has been ambulating more around the house with 1 person assist as well as assistive device. She does desire to walk again. No recent falls. Most recent hemoglobin A1c 6.9%, previously 5.4% 1 year ago. ROS: General: No fevers, malaise, unintentional weight loss Cardiovascular: No chest pain, palpitations. see hpi Respiratory: No shortness of breath, wheezing, cough MSK: see hpi Neuro: see hpi. no paresthesias Skin: No rashes or lesions Constitutional - Awake and Alert, No apparent distress Eyes - PERRLA, EOMI Cardiovascular - S1S2, RRR Respiratory - Normal lung expansion, Normal respiratory effort, No respiratory distress, CTA bilaterally Extremities - 2+ ble edema with tenderness on compression of edema. no calf ttp Skin - Warm/Dry Neurological - Alert & oriented x3 Psychological - Appropriate affect PFSH Medical History (Updated 07/30/24 @ 16:16 by MICHAEL Calero) Gait instability Bilateral leg weakness HLD (hyperlipidemia) HTN (hypertension) Diabetes Lower extremity edema History of shoulder fracture Osteoarthritis Family History (Updated 07/04/24 @ 11:40 by Domi Newman MA) Mother No problems noted. Father No problems noted. Social History Housing: House Patient Tobacco Use Status: Never used Tobacco e-Cigarette/Vaping Use: Never Used service: No Current occupational status: retired Cognitive needs: No Hearing needs: Yes (both hear aids. she doesn't have a rx for them and she borrowed them) Vision needs: Yes (rx glasses) Questionnaire Thrive Questionnaire Date Thrive assessed: 07/04/24 DAMIAN-7 AMB Questionnaire DAMIAN-7 Date DAMIAN - 7 assessed: 07/04/24 Source: Developed by Drs. Santiago Burkett, Tanja Lucas, Ted Cotton and colleagues, with an educational anisha from [employer]. Physical exam (Primary Care) Vital Signs: Last Vital Signs Temp 97.4 F 08/13/24 13:52 Pulse 69 08/13/24 13:52 BP 120/68 08/13/24 13:52 Pulse Ox 98 08/13/24 13:52 Oxygen Delivery Method Room Air 08/13/24 13:52 Tobacco/Smoking Status: Tobacco use Status Tobacco use date assessed 07/04/24 08/13/24 13:55 Patient Tobacco Use Status Never used Tobacco 08/13/24 13:55 e-Cigarette/Vaping Use Never Used 08/13/24 13:55 Thrive Assessment: Date of Thrive Assessment Date Thrive assessed 07/04/24 08/13/24 13:55 Coding Level of Care Code Est Pt Level 4 (43123) Complex EM visit Add On G2211 Diagnoses Lower extremity edema R60.0 Bilateral leg weakness R29.898 Diabetes E11.9 Assessment & Plan Assessment & Plan (1) Lower extremity edema: Code(s): R60.0 - Localized edema Category: Medical Plan: Continue lasix 40mg daily. Compression stockings per her comfort. Low sodium diet. Continue leg elevation and ambulation (2) Bilateral leg weakness: Code(s): R29.898 - Other symptoms and signs involving the musculoskeletal system Category: Medical Plan: Continue working with physical therapy, encourage ambulation (3) Diabetes: Code(s): E11.9 - Type 2 diabetes mellitus without complications Category: Medical Plan: Discussed most recent hemoglobin A1c which is 6.9%, up from 5.6% 1 year ago. Not currently on medications. Recommend diet low in refined sugars and simple carbohydrates. Follow-up in 4 months as scheduled with labs to be completed prior to visit. Check fasting glucose daily Plan Follow-up in 4 months with labs to be completed prior to visit Orders: Orders Basic Metabolic Panel 4 Months E11.9 - Type 2 diabetes mellitus without complications, I10 - Essential (primary) hypertension Hemoglobin A1c 4 Months E11.9 - Type 2 diabetes mellitus without complications, I10 - Essential (primary) hypertension Medications: New blood sugar diagnostic (OneTouch Ultra Test strips) Check fasting glucose daily 100 ea 0RF lancets (OneTouch UltraSoft 2 Lancet) Check fasting glucose daily 100 ea 1RF
[2024-08-13 13:52] VITALS: BP 120/68; PULSE 69; TEMP 36.3; O2SAT 98
--- OUTSIDE RECORDS SUMMARY | 2024-08-13 15:17 | XMS_ITS | Clinical Summary ---
Author Organization [facility] it Address [address] [place] [address] Care Team Providers Care Tube Depatcher Name Role Phone Unavailable Primary Care Provider [...]
== END 2024-08-13 14:21 | disposition home or self-care (01) ==
LOC: HO.HMCHD 13:42
PROVIDERS: PCP Internal Medicine; Visit Provider Physician Assistant
DX: R60.0 Localized edema (principal); R29.898 Other symptoms and signs involving the musculoskeletal system; E11.9 Type 2 diabetes mellitus without complications

== ENCOUNTER → 2024-08-13 13:42 | Outpatient (BNVA) | payer MEDICARE, SELFPAY | PROVIDERS: PCP Internal Medicine; Visit Provider Physician Assistant | DX: R60.0 Localized edema (principal); R29.898 Other symptoms and signs involving the musculoskeletal system; E11.9 Type 2 diabetes mellitus without complications; I10 Essential (primary) hypertension; E78.5 Hyperlipidemia, unspecified; Z79.899 Other long term (current) drug therapy | CPT/HCPCS: 99212 ==

== ENCOUNTER 2024-12-03 13:45 | Outpatient (AMB) | payer MEDICARE, SELFPAY ==
--- OUTSIDE RECORDS SUMMARY | 2024-10-09 09:00 | XMS_ITS ---
Author Organization [facility] Address [address] [place] [address] Care Team Providers Care [employer] Reading Teacher Name Role Phone Pamela BECERRA, Marco Primary Care Provider Khoa Díaz Unavailable [phone] Hernandez Encounters Encounter Location Date Provider Diagnosis [address] [address] 10/09/2024 Khoa Yao Plan Of Treatment Next Appt Details Provider Name:Khoa Yao , 12/11/2024 04:00:00 PM, [address] [place], [address], Progress Notes * Darlene SAMUEL RDOB:1940 (84 yo F)Acc No.[id number]:10/09/2024 Progress Note Patient: Darlene ARMSTRONG Provider: Cassidy Yao DPM :1940 A ge:84 Y S ex:Female Date:10/09/2024 Address:[address] [place], [place] [id number] Pcp:Marco Santiago MD Subjective: * Chief Complaints: * [address] Hernandez[address] * Medical History: Objective: * Vitals: Assessment: Plan: * Treatment: * Images: * The named appointment provid er may or may not be the originator of this progress note, and it is not deemed complete until electronically signed by the appointment provider. Sign off status: Pending * Provider: Cassidy Yao DPM Date: 0 10/09/2024 Generated for Benito pearson/Mahesh/Antonette on: 1 04:11 PM EDT
--- NOTE | 2024-12-03 13:49 | A.OFFPC_ITS ---
Vital Signs 12/03/24 13:57 Height 4 ft 11 in Weight 96.162 kg BMI 42.8 BP 110/70 Blood Pressure Location Rt brachial Position Sitting Respiration 16 Pulse 72 Pulse Source Pulse Oximeter Temp 97.3 F Temp Source Temporal Artery Scan Pulse Oximetry (%) 97 Oxygen Delivery Method Room Air Intake Visit Reasons: 4 month f/u Bottle Caser Required: No Accompanied by: Self / Same As Patient Allergies acetaminophen (From Percocet) Allergy (Mild, Verified 12/03/24 13:49) Vomiting choline salicylate (From Trilisate) Allergy (Mild, Verified 12/03/24 13:49) Unknown doxycycline Allergy (Mild, Verified 12/03/24 13:49) Vomiting magnesium salicylate (From Trilisate) Allergy (Mild, Verified 12/03/24 13:49) Unknown oxycodone (From Percocet) Allergy (Mild, Verified 12/03/24 13:49) Vomiting penicillin G (Penicillin G) Allergy (Unknown, Verified 12/03/24 13:49) RASH Medication List - Last Reconciled 12/03/24 by MICHAEL Calero lisinopril 10 mg PO DAILY rosuvastatin 20 mg PO DAILY Tobacco use date assessed: 07/04/24 Fall risk assessment: No Falls in past year Last assessed Fall Risk: 12/03/24 Dental Screening Dental Screen Date: 07/04/24 HPI HPI Comments History of Present Illness Details 84-year-old female with history of hyper tension, type 2 diabetes, hyperlipidemia, venous insufficiency presents to the office today accompanied by her daughter, Keily, for follow-up. Hypertension-blood pressure in the office today 110/70. Has been checking blood pressure at home with similar results. Has been compliant with lisinopril 10 mg daily. Hyperlipidemia-due for lipid panel. On rosuvastatin 20 mg daily Type 2 diabetes-due for updated A1c. Last A1c 6.9%. Diet controlled. Needs glucometer Venous insufficiency-reports recent venous ulcer which ruptured with needle insertion. No infection. No longer taking Lasix due to side effects. She is wheelchair-bound ROS: see hpi Constitutional - Awake and Alert, No apparent distress Eyes - PERRLA, EOMI Cardiovascular - S1S2, RRR Respiratory - Normal lung expansion, Normal respiratory effort, No respiratory distress, CTA bilaterally Extremities - 2+ ble edema with tenderness on compression of edema. no calf ttp Skin - Warm/Dry. Venous stasis changes bilaterally Neurological - Alert & oriented x3 Psychological - Appropriate affect PFSH Medical History (Updated 07/30/24 @ 16:16 by MICHAEL Calero) Gait instability Bilateral leg weakness HLD (hyperlipidemia) HTN (hypertension) Diabetes Lower extremity edema History of shoulder fracture Osteoarthritis Family History (Updated 07/04/24 @ 11:40 by Domi Newman MA) Mother No problems noted. Father No problems noted. Social History Housing: House Patient Tobacco Use Status: Never used Tobacco e-Cigarette/Vaping Use: Never Used service: No Current occupational status: retired Cognitive needs: No Hearing needs: Yes (both hear aids. she doesn't have a rx for them and she borrowed them) Vision needs: Yes (rx glasses) Questionnaire Thrive Questionnaire Date Thrive assessed: 07/04/24 DAMIAN-7 AMB Questionnaire DAMIAN-7 Date DAMIAN - 7 assessed: 07/04/24 Source: Developed by Drs. Santiago Burkett, Tanja Lucas, Ted Cotton and colleagues, with an educational anisha from [employer]. Physical exam (Primary Care) Vital Signs: Last Vital Signs Temp 97.3 F 12/03/24 13:57 Pulse 72 12/03/24 13:57 Resp 16 12/03/24 13:57 BP 110/70 12/03/24 13:57 Pulse Ox 97 12/03/24 13:57 Oxygen Delivery Method Room Air 12/03/24 13:57 BMI result Body Mass Index 42.8 Tobacco/Smoking Status: Tobacco use Status Tobacco use date assessed 07/04/24 12/03/24 13:50 Patient Tobacco Use Status Never used Tobacco 12/03/24 13:50 e-Cigarette/Vaping Use Never Used 12/03/24 13:50 Thrive Assessment: Date of Thrive Assessment Date Thrive assessed 07/04/24 12/03/24 13:50 Coding Level of Care Code Est Pt Level 4 (60788) Complex EM visit Add On G2211 Diagnoses Diabetes E11.9 HTN (hypertension) I10 HLD (hyperlipidemia) E78.5 Assessment & Plan Assessment & Plan (1) Diabetes: Code(s): E11.9 - Type 2 diabetes mellitus without complications Category: Medical Plan: Hemoglobin A1c ordered. Continue with diabetic diet. Goal A1c less than 7.0%, initiate therapy if indicated. Annual eye exams and foot exams (2) HTN (hypertension): Code(s): I10 - Essential (primary) hypertension Category: Medical Plan: Controlled. Continue lisinopril 10 mg daily (3) HLD (hyperlipidemia): Code(s): E78.5 - Hyperlipidemia, unspecified Category: Medical Plan: Lipid panel ordered. Continue rosuvastatin 20 mg daily. Plan Follow-up in the office in 4 months with labs completed following visit today. Orders: Orders Lipid Panel Today E11.9 - Type 2 diabetes mellitus without complications, E78.5 - Hyperlipidemia, unspecified, I10 - Essential (primary) hypertension Basic Metabolic Panel Today E11.9 - Type 2 diabetes mellitus without complications, E78.5 - Hyperlipidemia, unspecified, I10 - Essential (primary) hypertension Liver Panel Today E11.9 - Type 2 diabetes mellitus without complications, E78.5 - Hyperlipidemia, unspecified, I10 - Essential (primary) hypertension Hemoglobin A1c Today E11.9 - Type 2 diabetes mellitus without complications, E78.5 - Hyperlipidemia, unspecified, I10 - Essential (primary) hypertension Medications: Discontinued blood sugar diagnostic ([employer] Ultra Test strips) Discontinued Reason: Doctor's Order Check fasting glucose daily 100 ea 0RF lancets (OneTouch UltraSoft 2 Lancet) Discontinued Reason: Doctor's Order Check fasting glucose daily 100 ea 1RF
[2024-12-03 13:57] VITALS: BP 110/70; PULSE 72; RESP 16; TEMP 36.3; O2SAT 97; BMI 42.8
--- OUTSIDE RECORDS SUMMARY | 2024-12-03 16:12 | XMS_ITS | Clinical Summary ---
Author Organization [facility] Address [address] [address] Phone Care Team Providers Care Glass Scullion Name Role Phone Pcp, Unknown Primary Care Provider Unavailabl e Allergies Active Allergy Reactions Criticality Noted Date Comments Adhesive Tape-Silicones Rash Low 01/04/2017 Sulfamethoxazole-Trimet hoprim Rash Low 01/04/2017 Other 01/04/2017 Trilisate Hearing loss Penicillins Hives Medium 01/04/2017 Oxycodone-Acetaminophen Nausea and/or Vomiting 01/04/2017 Medications aspirin 81 MG EC tablet 1 tablet daily Active ibuprofen (ADVIL,MOTRIN) 200 MG tablet 4 tablet as needed Active lisinopril (PRINIVIL,ZESTRI L) 5 MG tablet TAKE ONE TABLET BY MOUTH EVERY DAY Active ULTRA THIN LANCETS MISC . Active blood sugar diagnostic Strp strips . Active rosuvastatin (CRESTOR) 20 MG tablet 1 tablet daily Active cyanocobalamin 2,500 mcg Tab 1 tab(s) daily Active tf-[id number]-wdfn-FA-he rbal cmplx#[id number] (VITAMIN D3 COMPLETE) 18 mg iron-800 mcg-150 mg Tab 1 tab(s) daily Active zinc 50 mg Tab tablet half a tab daily Active cholecalciferol (VITAMIN D3) 1,000 unit tablet Take 1,000 Units by mouth daily. Active ciprofloxacin HCl (CIPRO) 500 MG tablet Take 1 tablet (500 mg total) by mouth 2 (two) times a day. 10 tablet 01/04/2017 Active Active Problems Problem Noted Date Diagnosed Date Type 2 diabetes mellitus wit h diabetic neuropathy, without long-term current use of insulin 01/05/2017 Acute cystitis with hematuria 01/05/2017 Pure hypercholesterolemia 01/05/2017 Primary osteoarthritis involving multiple joints 01/05/2017 Notalgia 01/05/2017 Anemia 01/05/2017 Arachnoid cyst 01/04/2017 Asthma 01/04/2017 Hypertension 01/04/2017 Family History Medical History Relation Comments Cancer Mother Relation Status Comments Father (Age 69) coded Mother (Age 80) Lung cancer Social History Tobacco Use Types Packs/Day Years Used Date Smoking Tobacco: Never Smokeless Tobacco: Never Education Answer Date Recorded Are you interested in more education? Not on joseph e 06/25/2022 Are you concerned about learning? Not on file 06/25/2022 No 06/25/2022 No 06/25/2022 Digital Access Answer Date Recorded No 07/24/2022 No 07/24/2022 No 07/24/2022 Reliable internet access at home? Not on file 07/24/2022 Device with a working camera? Not on file Comments Unknown Sex and Gender Information Value Date Recorded Sex Assigned at Not on file Legal Sex Female 10:11 PM EDT Gender Identity Not on file Sexual Orientation Not on file Last Filed Vital Signs Vital Sign Reading Time Taken Comments Blood Pressure 130/66 01/04/2017 2:44 PM EST Pulse 60 01/04/2017 2:44 PM EST Temperature 36.5 C (97.7 F) 01/04/2017 2:44 PM EST Respiratory Rate 16 04/30/2016 2:19 AM EST Oxygen Saturation 97% 01/04/2017 2:44 PM EST Inhaled Oxygen Concentration - - Weight 93.2 kg (205 lb 6.4 oz) 01/04/2017 2:44 P M EST Height 149.9 cm (4' 11.02 ) 01/04/2017 2:[address] Body Mass Index 41.46 01/04/2017 2:44 PM EST Plan of Treatment Health Maintenance Due Date Last Done Comments Adult Td,Tdap Booster 1940 BLOOD PRESSURE 1940 CREATININE LEVEL 1940 HEMOGLOBIN A1C 1940 POTASSIUM LEVEL 1940 PNEUMOCOCCAL VACCINES (50+ y ears) (1 of 2 - PCV) 1961 ZOSTER VACCINES (1 of 2) 1992 OSTEOPOROSIS SCREENING INITI AL (ONE-TIME) 2007 DIABETIC EYE EXAM 01/04/2017 RSV VACCINE (1 - 1-dose 75+ series) 2017 DEPRESSION SCREENING 01/04/2018 01/04/2017 INFLUENZA VACCINE (#1) 2024 COVID-19 VACCINE (2023-2 5 season) 2024 HEPATITIS A VACCINES Aged Out No long er eligible based on patient's age to complete this topic HIB VACCINES Aged Out No longer eligi ble based on patient's age to complete this topic MENINGOCOCCAL VACCINES (ACWY) Aged Out No longer eligible based on patient's age to complete this topic MENINGOCOCCAL VACCINES (B) Aged Out N o longer eligible based on patient's age to complete this topic Medical Devices Not on file Insurance [employer] RE[employer] Care Teams Glass Scullion Relationship Specialty Start Date End Date Pcp, Unknown PCP - General 09/06/19 Additional Source Comments The information contained in this document represents components of the legal health record. It is not the complete legal health record.[facility]
--- OUTSIDE RECORDS SUMMARY | 2024-12-03 16:12 | XMS_ITS | Clinical Summary ---
Author Organization [facility] it Address [address] [place] [address] Care Team Providers Care Case Monitor Name Role Phone Unavailable Primary Care Provider [...] nts (1 - 1-dose 75+ series) 2017 Falls Risk Assessment 09/21/2023 Osteoporosis Screening (Bone Density Screening) 09/21/2023 Social Influencers of Health Screening 09/21/2023 Depression Screening 02/29/2024 COVID-19 Vaccine ( - 2023-2 5 season) 2024 Influenza Vaccine (#1) 2024 HIB Vaccines Aged Out No longer [...]
--- OUTSIDE RECORDS SUMMARY | 2024-12-03 16:12 | XMS_ITS | Patient Health Record ---
Author Organization [facility] Address [address] [place] [address] Care Team Providers Care Sewage Treatment Plant Operator Name Role Phone Owen Spangler MD Primary Care Provider Santiago Owens Unavailable [phone] Allergies Allergen (clinical drug ingredient) Drug/Non Drug Allergy documented on EMR Reaction Allergy Type Onset Date Status penicillamine Penicillamine Unknown Drug Allergy Active Reason For Referral No Information Plan Of Treatment No Information Insurance Providers Payer Name Payer Address Payer Phone Subscriber Number Group Number Insured Name Patient Relationship to Insured Coverage Start Date Coverage End Date [facility] [address] [place] [address] [phone] [id number] CORNELIUS BANGURA Self - patient is the insured Medical (General) History Medical History History ICD Code colonoscopy and egd 11-04-2006 gerd hiatal hernia tics asthma Surgical History Surgery Date(Month/Year) eye surgery foot surgery
--- OUTSIDE RECORDS SUMMARY | 2024-12-03 16:12 | XMS_ITS | Patient Health Record ---
[facility] Address [address] [place] [address] Care Team Providers Care [facility] Director Name Role Phone Marco Santiago MD Primary Care Provider Khoa Díaz Unavailable [phone] Allergies Allergen (clinical drug ingredient) Drug/Non Drug [...] 81 MG 1 tablet Orally Once a day; Duration: 30 day(s) Active Vitamin C Not-Taking Motrin Not-Taking Lasix 20 MG 1 tablet Orally Once a day; Duration: 30 day(s) Not-Narciso ing Hair Skin Nails Not- Taking Vitamin B Complex No t-Taking Magnesium 250 MG 1 tablet with a meal Orally Once a day; Duration: 30 day(s) Active Protonix Not-Taking metFORMIN HCl 500 MG as directed Active Iron Not-Taking Lisinopril 10 MG 1 tablet Orally Once a day; Duration: 30 day(s) Active Zinc Not-Taking Vitamin B12 3000 MCG/ML Sublingual Not-Taking Inhaler Companions N ot-Taking Diabetic Insoles Not -Taking Vitamin D Not-Taking Immunizations Vaccine Route Administration Date Status Comme nts Influenza Unknown 04/15/2016 Refused Influenza Unknown 07/06/2018 Refused COVID-19 Anthony & Anthony/Tracey Unknown 11/16/2021 R efused Social History Tobacco Use: Social History Observation [...] Problem Acquired hammer toe of right foot ([id number] 105) Other hammer toe(s) (acquired), right foot (M20.41) Active confirmed Problem Type 2 diabetes mellitus with peripheral angiopathy (825476494) Type 2 diabetes mellitus with diabetic peripheral angiopathy without gangrene (E11.51) Active confirmed Q7(A), Q8(2B), Q9(1B,2C) Problem Acquired hammer toe of left foot ([id number] 103) Other hammer toe(s) (acquired), left foot (M20.42) Active confirmed Vital Signs Blood pressure diastolic 60 mm Hg 06/12/2024 Height 4 ft 11 in in 06/12/2024 Blood pressure systolic 120 mm Hg 06/12/2024 Weight 195 lbs 06/12/2024 BMI 39.38 kg/m2 06/12/2024 Procedures Procedure Date Ordered Date Performed Result Body Sit e 94400-XDCFWUN NAIL, 6 OR MORE 03/06/2024 N/A 77061-XGHY SKIN LESIONS, 2 TO 4 03/06/2024 N/A 68434-CUFBTEU NAIL, 6 OR MORE 06/12/2024 N/A 79666-ZPCD SKIN LESIONS, 2 TO 4 06/12/2024 N/A Encounters Encounter Location Date Provider Diagnosis [facility] [address] [place] [address] 03/06/2024 Khoa Yao Tinea unguium B35.1 ; Type 2 diabetes mellitus with diabetic peripheral angiopathy without gangrene E11.51 ; Pain in right toe(s) M79.674 ; Pain in left toe(s) M79.675 ; Other hammer toe(s) (acquired), right foot M20.41 and Other hammer toe(s) (acquired), left foot M20.42 [facility] [address] [place] [address] 06/12/2024 Khoa Yao Tinea unguium B35.1 ; Type 2 diabetes mellitus with diabetic peripheral angiopathy without gangrene E11.51 ; Pain in right toe(s) M79.674 and Pain in left toe(s) M79.675 Assessments Encounter Date Diagnosis (ICD Code) Assessment Notes Treatment Notes Treatment Clinical Notes Section Notes 03/06/2024 Type 2 diabetes mellitus with diabetic [...] Treatment Pending Test Test Name Order Date 08471-NTQWAXY NAIL, 6 OR MORE 08/26/2011 86612-GGQJATZ NAIL, 6 OR MORE 12/09/2011 92272-EGGFDSU NAIL, 6 OR MORE 07/10/2012 60073-QMMPJCL NAIL, 6 OR MORE 10/23/2012 53359-JEPGOFP NAIL, 6 OR MORE 04/11/2014 69971-LUSSUWQ NAIL, 6 OR MORE 10/09/2014 09744-CSFUMYO NAIL, 6 OR MORE 03/19/2015 40086-FOSAWVB NAIL, 6 OR MORE 10/15/2015 21279-QZAIGKR NAIL, 6 OR MORE 04/15/2016 70148-DBBWCBR NAIL, 6 OR MORE 01/15/2016 32041-MJDCSWM NAIL, 6 OR MORE 09/29/2016 45942-IBIVDUF NAIL, 6 OR MORE 01/03/2017 54272-OTLBHQJ NAIL, 6 OR MORE 04/04/2017 31437-KZWCCIZ NAIL, 6 OR MORE 07/04/2017 41131-OHBPTGN NAIL, 6 OR MORE 10/05/2017 90872-EURIDOI NAIL, 6 OR MORE 01/05/2018 03803-YIQZNLE NAIL, 6 OR MORE 03/06/2024 77601-WLNPHTZ NAIL, 6 OR MORE 06/12/2024 05229-UMJFCMO NAIL, 6 OR MORE 10/10/2013 78744-VGMZLJT NAIL, 6 OR MORE 04/26/2013 61035-ZMIMEID NAIL, 6 OR MORE 04/12/2012 34837-BKCWTFG NAIL, 6 OR MORE 05/26/2011 59536-USXWNFU NAIL, 6 OR MORE 01/27/2011 55721-AWMKKVK NAIL, 6 OR MORE 07/09/2015 96918-QDXVDMI NAIL, 6 OR MORE 12/25/2014 78339-YBONVMU NAIL, 6 OR MORE 07/10/2014 21910-VKLPTZJ NAIL, 6 OR MORE 07/12/2013 06105-RFLKJYV NAIL, 6 OR MORE 01/22/2013 72042-LUEBPGC NAIL, 6 OR MORE 01/09/2014 40258-Uazh Destruction, 1-14 04/04/2017 30511-Nymsshxm Plate 12/25/2014 72183-OETX SKIN LESIONS, OVER 4 07/11/19 15 73806-UWLL SKIN LESIONS, OVER 4 07/09/19 16 90127-VYEX SKIN LESIONS, OVER 4 01/28/20 11 02423-DJAX SKIN LESIONS, OVER 4 05/26/19 12 57199-AHUY SKIN LESIONS, OVER 4 04/12/19 13 17589-DXID SKIN LESIONS, OVER 4 04/26/19 14 15078-QVQX SKIN LESIONS, OVER 4 10/11/19 14 46350-AEVJ SKIN LESIONS, OVER 4 04/06/19 19 36294-RTUA SKIN LESIONS, OVER 4 10/06/19 19 37999-ROHT SKIN LESIONS, OVER 4 01/11/20 19 21782-HJFU SKIN LESIONS, OVER 4 04/25/19 20 80229-MALA SKIN LESIONS, OVER 4 07/25/19 20 18856-EXTP SKIN LESIONS, OVER 4 03/12/19 21 65963-IZZI SKIN LESIONS, OVER 4 06/17/19 21 23103-LUMT SKIN LESIONS, OVER 4 09/16/19 21 43166-GHZA SKIN LESIONS, OVER 4 07/05/19 18 47510-GAER SKIN LESIONS, OVER 4 01/06/20 18 93410-ZTHK SKIN LESIONS, OVER 4 01/04/20 17 66942-VETY SKIN LESIONS, OVER 4 01/15/20 16 96506-EQXB SKIN LESIONS, OVER 4 04/15/19 17 80031-GEYQ SKIN LESIONS, OVER 4 07/01/19 17 38196-ETDH SKIN LESIONS, OVER 4 09/30/19 17 42995-WBPM SKIN LESIONS, OVER 4 10/15/19 16 32628-SXDT SKIN LESIONS, OVER 4 03/19/19 16 99217-ENPC SKIN LESIONS, OVER 4 10/10/19 15 95116-RCQO SKIN LESIONS, OVER 4 04/11/19 15 56869-NUWX SKIN LESIONS, OVER 4 10/24/19 13 20221-RNHD SKIN LESIONS, OVER 4 07/11/19 13 32481-OIGI SKIN LESIONS, OVER 4 12/09/19 12 06093-HODQ SKIN LESIONS, OVER 4 08/26/19 12 28353-HBGO SKIN LESIONS, OVER 4 01/10/20 14 43308-GCLY SKIN LESIONS, OVER 4 01/23/20 13 89005-COTP SKIN LESIONS, OVER 4 07/13/19 14 63159-QYUG SKIN LESIONS, OVER 4 12/19/19 21 30478-GLFJ SKIN LESIONS, OVER 4 10/25/19 20 20749-RJRB SKIN LESIONS, 2 TO 4 10/06/19 18 16519-EQUD SKIN LESIONS, 2 TO 4 04/04/19 18 71656-LVSG SKIN LESIONS, 2 TO 4 03/26/19 22 26000-XGKE SKIN LESIONS, 2 TO 4 11/17/19 57736-RQHG SKIN LESIONS, 2 TO 4 07/07/19 50078-ZBCA SKIN LESIONS, 2 TO 4 03/06/19 72967-QKAP SKIN LESIONS, 2 TO 4 06/13/19 50635-IUKQ SKIN LESIONS, 2 TO 4 12/26/19 15 91634, J0702- Neuroma/Injection 12/09/19 12 Next Appt Details Provider Name:Khoa Yao , 12/11/2024 04:00:00 PM, [address] [place], [address], Insurance Providers Payer Name Payer Address Payer Phone Subscriber Number Group Number Insured Name Patient Relationship to Insured Coverage Start Date Coverage End Date Medicare National [employer] [address] [place] [address] [id number] Darlene Samuel Self - patient is the insured 8 [employer] [address] [place] [address] [id number] Jimmie Darlene Self - patient is the insured Medical (General) History Medical History History ICD Code reflux mumps measles chicken pox chronic sinusitis headaches/migraines broken bones back, hip, knee pain asthma type II diabetes covid-19 broken arm Hypertension Hypercholesterolemia Surgical History Surgery Date(Month/Year)
== END 2024-12-03 14:28 | disposition home or self-care (01) ==
LOC: HO.HMCHD 13:45
PROVIDERS: PCP Internal Medicine; Visit Provider Physician Assistant
DX: E11.9 Type 2 diabetes mellitus without complications (principal); I10 Essential (primary) hypertension; E78.5 Hyperlipidemia, unspecified

== ENCOUNTER → 2024-12-03 13:45 | Outpatient (BNVA) | payer MEDICARE, SELFPAY | PROVIDERS: PCP Internal Medicine; Visit Provider Physician Assistant | DX: E11.9 Type 2 diabetes mellitus without complications (principal); I10 Essential (primary) hypertension; E78.5 Hyperlipidemia, unspecified; I87.2 Venous insufficiency (chronic) (peripheral); Z79.899 Other long term (current) drug therapy; Z99.3 Dependence on wheelchair | CPT/HCPCS: 99212 ==

== ENCOUNTER 2024-12-10 14:09 | Outpatient (REF) | payer MEDICARE, SELFPAY ==
--- OUTSIDE RECORDS SUMMARY | 2024-12-10 14:13 | XMS_ITS | Clinical Summary ---
Author Organization [facility] Address [address] [address] Phone Care Team Providers Care Field Crop Harvest Worker Name Role Phone Pcp, Unknown Primary Care [...] 2,500 mcg Tab 1 tab(s) daily Active tq-lr-bxgl-FA-he rbal cmplx#190 (VITAMIN D3 COMPLETE) 18 mg [...] 01/04/2017 INFLUENZA VACCINE (#1) 2024 COVID-19 VACCINE (2024-2 6 season) 2024 HEPATITIS A VACCINES Aged Out [...] [employer] PREFERRED HMO REPLACEMENT Care Teams Field Crop Harvest Worker Relationship Specialty Start Date End Date Pcp, Unknown PCP - General 09/06/19 Additional Source Comments The information contained in this document represents components of the legal health record. It is not the complete legal health record.[facility]
--- OUTSIDE RECORDS SUMMARY | 2024-12-10 14:13 | XMS_ITS | Clinical Summary ---
Author Organization [facility] it Address [address] [place] [address] Care Team Providers Care Police Patrol Officer Name Role Phone Unavailable Primary Care Provider [...]
[2024-12-10 15:38] LABS: Alanine Aminotransferase 12 U/L (0-31); Albumin Level 4.1 g/dL (3.5-5.0); Alkaline Phosphatase 130 U/L (39-117); Anion Gap 11 (12-20); Aspartate Amino Transferase 16 U/L (5-31); Blood Urea Nitrogen 23 mg/dL (9-16); Calcium 10.3 mg/dL (8.4-10.2); Carbon Dioxide 30 mmol/L (22-29); Chloride 108 mmol/L (96-108); Cholesterol 188 mg/dL (<200); Estimated Glomerular Filt Rate 49; HDL Cholesterol 69 mg/dL (>40); Potassium 3.9 mmol/L (3.3-5.1); Sodium 145 mmol/L (135-145); Total Protein 7.0 g/dL (6.5-8.0); Triglycerides 86 mg/dL (<150)
== END 2024-12-10 14:10 | disposition home or self-care (01) ==
LOC: HO.LAB 14:09
PROVIDERS: PCP Physician Assistant; Visit Provider Physician Assistant
DX: I10 Essential (primary) hypertension (principal); E78.5 Hyperlipidemia, unspecified; E11.9 Type 2 diabetes mellitus without complications
CPT/HCPCS: 36415; 80048; 80061; 80076; 83036